=== PATIENT | male | born 1985 | race Caucasian/White ===

== ENCOUNTER 2024-12-16 18:03 | Observation (INO) ==
[2024-12-16 19:10] LABS: Alanine Aminotransferase 23 U/L (7-52); Albumin Globulin Ratio 0.8 (0.9-2); Albumin Level 2.9 gm/dl (3.4-5.0); Alkaline Phosphatase 109 U/L (34-104); Anion Gap 3 (3-11); Aspartate Aminotransferase 38 U/L (13-39); BUN Creatinine Ratio 15.9 (10-20); Bilirubin,Total 1.6 mg/dl (0.2-1.0); Blood Urea Nitrogen 13 mg/dl (6-23); Calcium 8.1 mg/dl (8.6-10.3); Carbon Dioxide 23 mmol/L (21-32); Chloride 108 mmol/L (98-107); Globulin 3.7 gm/dl (2.5-4.0); Glucose 147 mg/dl (70-99(Fasting)); Potassium 4.5 mmol/L (3.5-5.1); Sodium 134 mmol/L (136-145); Total Protein 6.6 gm/dl (6.0-8.3)
[2024-12-16 19:12] LABS: Hematocrit (blood only) 35.4 % (42.0-52.0); Hemoglobin 12.3 g/dl (14.0-18.0); Mean Corpuscular Hemoglobin 33.9 pg (25.0-34.0); Mean Corpuscular Hgb Conc 34.7 g/dL (32.0-36.0); Mean Corpuscular Volume 97.5 fL (80.0-100.0); RDW Standard Deviation 50.4 fL (36.4-46.3); Red Blood Count 3.63 M/uL (4.70-6.10); White Blood Count 8.96 K/ul (4.8-10.8)
[2024-12-16 19:25] LABS: Basophils # (auto) 0.02 K/uL (0.00-0.20); Basophils % (auto) 0.2 %; Eosinophils % (auto) 1.1 %; Immature Granulocytes # (auto) 0.04 K/uL (0.01-0.20); Immature Granulocytes % (auto) 0.4 %; Lymphocytes # (auto) 0.53 K/uL (1.20-3.40); Lymphocytes % (auto) 5.9 %; Mean Platelet Volume 11.8 fL (9.4-12.4); Monocytes # (auto) 0.88 K/uL (0.11-0.59); Monocytes % (auto) 9.8 %; Neutrophils # (auto) 7.39 K/uL (1.40-6.50); Neutrophils % (auto) 82.6 %; Platelet Count 61 K/uL (130-400); Platelet Estimate Decreased (Normal)
--- NOTE | 2024-12-16 21:33 | Emergency Department Note ---
Impression & Plan Cellulitis of left lower extremity, Alcohol use disorder, Type 2 diabetes mellitus, Thrombocytopenia, Abscess of left lower extremity ED Provider Note CHIEF COMPLAINT: Knee abscess HISTORY OF PRESENTING ILLNESS: The patient is a 39-year-old male who arrives to the emergency department for evaluation of a knee abscess with cellulitis. He reports he is currently at [facility] for alcohol treatment. He reports he has been taking antibiotic for the last 4 days, however the redness and pain in the left knee is worsening. He now states he is having intermittent fevers. He reports severe pain and tenderness to the left leg, worsening at the medial aspect of the left knee. He reports draining from the area noted. He reports full sensation of the leg. He denies IV drug use, or injection into that area. REVIEW OF SYSTEMS: See HPI for pertinent positives and pertinent negatives. ALLERGIES: No known drug allergies MEDICATIONS: See below PAST MEDICAL HISTORY: Alcohol dependence, thrombocytopenia, type 2 diabetes PHYSICAL EXAM: VITALS: Vitals are noted on the nurse's note and reviewed by myself. Vital signs stable. GENERAL: 39-year-old male, in no acute distress, nondiaphoretic, well-developed well-nourished. SKIN: Cellulitis, extending from distal left tib-fib to proximal left humerus, circumferential. Edema, with induration noted. Area of drainage, and fluctuance at the medial aspect of the left knee. HEAD: Normocephalic atraumatic. HEART: Regular rate and rhythm without murmurs gallops or rubs. LUNGS: Clear to auscultation bilaterally without wheezes, rales or rhonchi. No retractions or accessory muscle use. MUSCULOSKELETAL: Limited ROM, left knee, secondary to pain, edema, and infection. Distal extremity edema noted, DP pulse intact. Sensation intact to dull and sharp. Capillary refill<3. NEURO: Patient was alert and oriented to person place and time. No focal neurological deficits. DIFFERENTIAL DIAGNOSIS: Cellulitis, abscess, MRSA infection, DVT, necrotizing fasciitis, dermatitis, drug eruption, allergic reaction, as well as other pathologies. ED COURSE AND MEDICAL DECISION MAKING: MEDICATIONS GIVEN: 1 L NSS bolus, morphine 4 mg IVP, cefepime 2 g IV vancomycin 2750 mg IV INTERPRETATION OF LABS: I interpreted the labs with full lab results as below in the lab section of this note. Pertinent lab results discussed in the MDM section below. INTERPRETATION OF IMAGING: Imaging studies were interpreted by myself and read by radiology as per the imaging section of this note. CHRONIC MEDICAL/SOCIAL CONDITIONS AFFECTING CARE: Chronic alcohol use, alcohol dependence, type 2 diabetes mellitus MDM SUMMARY: The patient is a pleasant 39-year-old male who arrives to the emergency department via EMS for evaluation of the above-stated complaint. The patient arrived during a time of high acuity, and high-volume. Initial workup was performed in triage including a saline lock, CBC, CMP. CBC shows no leukocytosis, with pancytopenia, CMP CMP shows elevated total bili at 1.6, elevated alkaline phosphatase 109, albumin 2.9, findings consistent with patient's history of chronic alcohol dependence. Upon evaluation of the patient, sepsis orders were initiated including blood cultures, lactate, procalcitonin, urinalysis, IV fluids, and imaging including x-ray imaging of the left knee, and ultrasound imaging of the left lower extremity soft tissue. Lactate 1.0, procalcitonin within normal limits. X-ray imaging of the left knee shows diffuse subcutaneous edema, per my interpretation. Ultrasound imaging shows a 1.9 x 0.7 x 1.6 cm complex fluid collection along the medial aspect of the left popliteal fossa likely representing an abscess. The patient was provided IV fluids, 4 mg of IV morphine, 2 g of IV cefepime, and weight-based dosing of IV vancomycin. [facility], and further evaluation. I [facility] who is working with Dr. Elmore. They agreed to accept the patient under their care. Please refer to their documentation for further patient workup and treatment. DIAGNOSIS: Left lower extremity cellulitis, abscess of left lower extremity, thrombocytopenia The chart was completed utilizing [employer] Speech voice recognition software. Grammatical errors, random word insertions, pronoun errors, and incomplete sentences are an occasional consequence of this system due to software limitations, ambient noise, and hardware issues. Any formal questions or concerns about the content, text, or information contained within the body of this dictation should be directly addressed to the provider for clarification. Past Med/Surg History Problem List (Updated 12/20/24 @ 13:01 by ALESHIA Jones) Abscess of left lower extremity (Acute) Thrombocytopenia (Acute) Hypertension Type 2 diabetes mellitus (Acute) GERD (gastroesophageal reflux disease) Alcohol use disorder (Acute) Cellulitis of left lower extremity (Acute) Social History Smoking Status: Never smoker Second Hand Exposure: No; Do You Dip or Chew Tobacco: No; Tobacco Cessation Education Requested by Patient: No Hx Alcohol Use: Yes Hx Substance Use: No Preferred Language: Upper Sorbian Communication Ability: Effective Peanut Roaster Required: No Beliefs That Will Affect Care: None Current Living Situation: Boarding Home Current Living Situation Comment: currently is statying at [facility] But normally lives at home with . Other Information That Helps Us Care for You: No Feels Safe at Home: Yes Safety Concerns: Feels Safe At This Time Assistive Devices: None Allergies Allergies Allergy/AdvReac Type Severity Reaction Status Date / Time No Known Allergies Allergy Unverified 12/16/24 22:39 Home Meds Home Medications Medication Instructions Recorded Confirmed Coreg 1 tab PO BID 12/16/24 12/16/24 Previous Rx's Medication Instructions Recorded acetaminophen 500 mg tablet 1,000 mg (2 x 500 mg) PO Q8 PRN 12/20/24 (Acetaminophen Extra Strength) pain 3 days #20 tabs acetaminophen 500 mg tablet 1,000 mg (2 x 500 mg) PO Q8 3 days 12/20/24 (Tylenol Extra Strength) #18 tabs doxycycline hyclate 100 mg capsule 100 mg PO BID 7 days #14 caps 12/20/24 doxycycline monohydrate 100 mg 100 mg PO BID 7 days #14 caps 12/20/24 capsule ketorolac 10 mg tablet 10 mg PO Q8H 3 days #9 tabs 12/20/24 ketorolac 10 mg tablet 10 mg PO Q8H 3 days #9 tabs 12/20/24 pantoprazole 40 mg tablet,delayed 40 mg PO DAILY 4 weeks #28 tabs 12/20/24 release pantoprazole 40 mg tablet,delayed 40 mg PO QAM 15 days #20 tabs 12/20/24 release Results & Data (ED) Vital Signs Vital Signs - 24 hr 12/16/24 18:26 Temperature 37.3 C Temperature Source Oral Pulse Rate 82 Respiratory Rate 17 Pulse Oximetry 97 Oxygen Delivery Method Room Air Sepsis Recent Fever Within 48 Hours Yes Sepsis New/Unexplained Change in Mental Status N/A Sepsis Action Taken by Nursing No Action Required Home Medications Current Medication List: was personally reviewed by me Laboratory Data Attestation: I reviewed the patient's lab results. 12/20/24 07:27 12/20/24 07:27 Lab Results 12/16/24 12/16/24 Range/Units 18:32 22:50 WBC 8.96 (4.8-10.8) K/ul RBC 3.63 L (4.70-6.10) M/uL Hgb 12.3 L (14.0-18.0) g/dl Hct 35.4 L (42.0-52.0) % MCV 97.5 (80.0-100.0) fL MCH 33.9 (25.0-34.0) pg MCHC 34.7 (32.0-36.0) g/dL RDW Std Deviation 50.4 H (36.4-46.3) fL RDW Coeff of Katelyn 14.0 (11.5-14.5) % Plt Count 61 L (130-400) K/uL MPV 11.8 (9.4-12.4) fL Immature Gran % (Auto) 0.4 % Neut % (Auto) 82.6 % Lymph % (Auto) 5.9 % Lamb % (Auto) 9.8 % Eos % (Auto) 1.1 % Baso % (Auto) 0.2 % Neut # (Auto) 7.39 H (1.40-6.50) K/uL Lymph # (Auto) 0.53 L (1.20-3.40) K/uL Lamb # (Auto) 0.88 H (0.11-0.59) K/uL Eos # (Auto) 0.10 (0.00-0.50) K/uL Baso # (Auto) 0.02 (0.00-0.20) K/uL Immature Gran # (Auto) 0.04 (0.01-0.20) K/uL Platelet Estimate Decreased L (Normal) Sodium 134 L (136-145) mmol/L Potassium 4.5 (3.5-5.1) mmol/L Chloride 108 H (98-107) mmol/L Carbon Dioxide 23 (21-32) mmol/L Anion Gap 3 (3-11) BUN 13 (6-23) mg/dl Creatinine 0.82 (0.6-1.4) mg/dl Est Cr Clr Drug Dosing Not Reportable eGFR 113.18 BUN/Creatinine Ratio 15.9 (10-20) Glucose 147 H (70-99(Fasting)) mg/dl Lactate 1.0 (0.4-2.0) mmol/L Calcium 8.1 L (8.6-10.3) mg/dl Total Bilirubin 1.6 H (0.2-1.0) mg/dl AST 38 (13-39) U/L ALT 23 (7-52) U/L Alkaline Phosphatase 109 H (34-104) U/L Total Protein 6.6 (6.0-8.3) gm/dl Albumin 2.9 L (3.4-5.0) gm/dl Globulin 3.7 (2.5-4.0) gm/dl Albumin/Globulin Ratio 0.8 L (0.9-2) Administered Medications Acetaminophen (Acetaminophen 500 Mg Tab) 1,000 mg PO Q8 JENNIFER Stop: 01/17/25 15:14 Last Admin: 12/20/24 06:11 Dose: 1,000 mg Documented By: Admin: 12/19/24 20:57 Dose: 1,000 mg Documented By: Admin: 12/19/24 12:49 Dose: 1,000 mg Documented By: Admin: 12/19/24 05:30 Dose: 1,000 mg Documented By: Admin: 12/18/24 21:03 Dose: 1,000 mg Documented By: Admin: 12/18/24 15:53 Dose: 1,000 mg Documented By: KATHY Carvedilol (Carvedilol 3.125 Mg Tab) 3.125 mg PO BID JENNIFER Stop: 01/16/25 08:59 Last Admin: 12/20/24 07:55 Dose: 3.125 mg Documented By: Admin: 12/19/24 20:57 Dose: 3.125 mg Documented By: Admin: 12/19/24 08:51 Dose: 3.125 mg Documented By: Admin: 12/18/24 21:03 Dose: 3.125 mg Documented By: Admin: 12/18/24 08:28 Dose: 3.125 mg Documented By: Admin: 12/17/24 19:57 Dose: 3.125 mg Documented By: MARIA G Admin: 12/17/24 08:15 Dose: 3.125 mg Documented By: KATHY Fluoxetine HCl (Fluoxetine Hcl 20 Mg Cap) 20 mg PO QAM JENNIFER Stop: 01/16/25 08:59 Last Admin: 12/20/24 07:55 Dose: 20 mg Documented By: Admin: 12/19/24 08:51 Dose: 20 mg Documented By: Admin: 12/18/24 08:28 Dose: 20 mg Documented By: Admin: 12/17/24 08:15 Dose: 20 mg Documented By: KATHY Vancomycin HCl 1,250 mg/ (Sodium Chloride) 275 mls @ 200 mls/hr IV Q8H JENNIFER Stop: 12/24/24 09:59 Last Infusion: 12/20/24 10:59 Dose: Infused Documented By: Admin: 12/20/24 09:01 Dose: 200 mls/hr Documented By: Infusion: 12/20/24 02:44 Dose: Infused Documented By: Admin: 12/20/24 01:07 Dose: 200 mls/hr Documented By: Infusion: 12/19/24 19:12 Dose: Infused Documented By: Admin: 12/19/24 17:48 Dose: 200 mls/hr Documented By: Infusion: 12/19/24 11:44 Dose: Infused Documented By: Admin: 12/19/24 10:08 Dose: 200 mls/hr Documented By: Infusion: 12/19/24 03:11 Dose: Infused Documented By: Admin: 12/19/24 00:55 Dose: 200 mls/hr Documented By: MLRisa Infusion: 12/18/24 20:00 Dose: Infused Documented By: MLRisa Admin: 12/18/24 18:30 Dose: 200 mls/hr Documented By: Infusion: 12/18/24 11:28 Dose: Infused Documented By: Admin: 12/18/24 09:48 Dose: 200 mls/hr Documented By: Infusion: 12/18/24 03:28 Dose: Infused Documented By: MARIA G Admin: 12/18/24 02:01 Dose: 200 mls/hr Documented By: MARIA G Infusion: 12/17/24 19:30 Dose: Infused Documented By: MARIA G Admin: 12/17/24 18:02 Dose: 200 mls/hr Documented By: Infusion: 12/17/24 11:27 Dose: Infused Documented By: Admin: 12/17/24 09:53 Dose: 200 mls/hr Documented By: KATHY Insulin Aspart (Insulin Aspart Per Unit Charge) 0 units SC ACHS JENNIFER Stop: 01/16/25 07:29 Last Admin: 12/20/24 12:36 Dose: 4 units Documented By: MANJULA Co-signed By: ИРИНА Admin: 12/20/24 09:00 Dose: 2 units Documented By: MANJULA Co-signed By: ИРИНА Admin: 12/19/24 20:58 Dose: Not Given Documented By: KENIA Co-signed By: ALE Admin: 12/19/24 17:20 Dose: 3 units Documented By: LIZZETH Co-signed By: ИРИНА Admin: 12/19/24 12:48 Dose: 3 units Documented By: LIZZETH Co-signed By: AUSTIN Admin: 12/19/24 08:51 Dose: 4 units Documented By: LIZZETH Co-signed By: AUSTIN Admin: 12/18/24 20:57 Dose: Not Given Documented By: KENIA Co-signed By: ELMA Admin: 12/18/24 17:23 Dose: 2 units Documented By: KATHY Co-signed By: APOLINAR Admin: 12/18/24 12:07 Dose: 3 units Documented By: KATHY Co-signed By: DAMIAN Admin: 12/18/24 08:19 Dose: 4 units Documented By: KATHY Co-signed By: DANIEL Admin: 12/17/24 21:46 Dose: Not Given Documented By: MARIA G Co-signed By: HERNANDEZ Admin: 12/17/24 17:05 Dose: 4 units Documented By: KATHY Co-signed By: DAMIAN Admin: 12/17/24 12:26 Dose: 3 units Documented By: KATHY Co-signed By: DAMIAN Admin: 12/17/24 08:20 Dose: 4 units Documented By: KATHY Co-signed By: ИРИНА Ketorolac Tromethamine (Ketorolac Tromethamine 15 Mg/Ml Vial) 10 mg IV Q8H JENNIFER Stop: 12/24/24 12:59 Last Admin: 12/20/24 12:36 Dose: 10 mg Documented By: Admin: 12/20/24 06:11 Dose: 10 mg Documented By: Admin: 12/19/24 20:55 Dose: 10 mg Documented By: Admin: 12/19/24 15:18 Dose: 10 mg Documented By: LIZZETH Oxycodone HCl (Oxycodone Hcl Ir 5 Mg Tab (Immediate Release)) 5 mg PO Q6H PRN PRN Reason: Pain Stop: 01/02/25 13:02 Last Admin: 12/20/24 00:18 Dose: 5 mg Documented By: Admin: 12/19/24 17:21 Dose: 5 mg Documented By: LIZZETH Pantoprazole Sodium (Pantoprazole 40 Mg Tab) 40 mg PO QAM JENNIFER Stop: 01/16/25 00:00 Last Admin: 12/20/24 07:55 Dose: 40 mg Documented By: Admin: 12/19/24 08:51 Dose: 40 mg Documented By: Admin: 12/18/24 08:28 Dose: 40 mg Documented By: Admin: 12/17/24 08:57 Dose: 40 mg Documented By: Admin: 12/17/24 01:24 Dose: 40 mg Documented By: MERISSA Discontinued Medications Acetaminophen (Acetaminophen 325 Mg Tab) 650 mg PO Q4H PRN PRN Reason: pain/fever Stop: 01/16/25 00:00 Last Admin: 12/17/24 02:41 Dose: 650 mg Documented By: NANO Cefepime HCl (Cefepime 2,000 Mg/20 Ml Iv Push) Confirm Administered Dose 2,000 mg IV .STK-MED ONE Stop: 12/17/24 00:10 Last Admin: 12/17/24 00:43 Dose: Not Given Documented By: JONATHAN Hydromorphone HCl (Hydromorphone Inj 1 Mg/Ml Syringe) 1 mg IV NOW STA Stop: 12/17/24 03:39 Last Admin: 12/17/24 03:46 Dose: 1 mg Documented By: MPS Hydromorphone HCl (Hydromorphone Inj 0.5 Mg/0.5 Ml Syr) 1 mg IV Q6H JENNIFER Stop: 12/31/24 11:59 Last Admin: 12/17/24 12:55 Dose: 1 mg Documented By: KATHY Sodium Chloride (Nss) 1,000 mls @ 999 mls/hr IV .Q1H1M JENNIFER Stop: 12/16/24 23:45 Last Infusion: 12/17/24 02:12 Dose: Infused Documented By: Admin: 12/17/24 00:58 Dose: 999 mls/hr Documented By: Infusion: 12/17/24 00:17 Dose: Infused Documented By: Admin: 12/16/24 23:16 Dose: 999 mls/hr Documented By: MERISSA Vancomycin HCl 2,750 mg/ (Sodium Chloride) 555 mls @ 200 mls/hr IV NOW ONE Stop: 12/17/24 00:24 Last Infusion: 12/17/24 04:32 Dose: Infused Documented By: Admin: 12/17/24 00:11 Dose: 200 mls/hr Documented By: MERISSA Cefepime HCl (Maxipime 2000mg) 2,000 mg in 20 mls @ 5 mls/min IV NOW STA; Protocol Stop: 12/16/24 21:58 Last Admin: 12/17/24 00:11 Dose: 5 mls/min Documented By: MERISSA Cefepime HCl (Maxipime 2000mg) 2,000 mg in 20 mls @ 5 mls/min IV Q12H JENNIFER; Protocol Stop: 12/24/24 11:59 Last Admin: 12/17/24 12:07 Dose: 5 mls/min Documented By: KATHY Lidocaine/Epinephrine (Lidocaine 1%/Epinephrine 1:100,000 50 Ml Vial) 10 ml INFIL NOW ONE Stop: 12/17/24 12:15 Last Admin: 12/17/24 14:21 Dose: Not Given Documented By: KATHY Morphine Sulfate (Morphine Sulfate 4 Mg/Ml 1 Ml Carp\Vial) 4 mg IV NOW STA Stop: 12/16/24 21:45 Last Admin: 12/16/24 23:23 Dose: Not Given Documented By: MERISSA Morphine Sulfate (Morphine Sulfate 4 Mg/Ml 1 Ml Carp\Vial) 4 mg IV NOW STA Stop: 12/16/24 23:05 Last Admin: 12/16/24 23:13 Dose: 4 mg Documented By: MERISSA Morphine Sulfate (Morphine Sulfate 2 Mg/Ml Carp) 2 mg IV Q3H PRN PRN Reason: Moderate Pain (Scale 4, 5, 6) Stop: 12/31/24 14:25 Last Admin: 12/19/24 08:51 Dose: 2 mg Documented By: Admin: 12/19/24 05:30 Dose: 2 mg Documented By: KENIA Morphine Sulfate (Morphine Sulfate 4 Mg/Ml 1 Ml Carp\Vial) 4 mg IV Q3H PRN PRN Reason: Severe Pain (Scale 7, 8, 9,10) Stop: 12/31/24 14:25 Last Admin: 12/19/24 12:49 Dose: 4 mg Documented By: Admin: 12/19/24 00:52 Dose: 4 mg Documented By: Admin: 12/18/24 21:05 Dose: 4 mg Documented By: Admin: 12/18/24 17:50 Dose: 4 mg Documented By: Admin: 12/18/24 13:50 Dose: 4 mg Documented By: Admin: 12/18/24 09:24 Dose: 4 mg Documented By: Admin: 12/18/24 05:01 Dose: 4 mg Documented By: MARIA G Admin: 12/18/24 02:01 Dose: 4 mg Documented By: MARIA G Admin: 12/17/24 22:58 Dose: 4 mg Documented By: MARIA G Admin: 12/17/24 19:58 Dose: 4 mg Documented By: MARIA G Admin: 12/17/24 16:56 Dose: 4 mg Documented By: KATHY Oxycodone HCl (Oxycodone Hcl Ir 5 Mg Tab (Immediate Release)) 5 mg PO Q4H PRN PRN Reason: Pain Stop: 12/31/24 02:16 Last Admin: 12/17/24 10:01 Dose: 5 mg Documented By: Admin: 12/17/24 02:41 Dose: 5 mg Documented By: ANS Discharge Plan Visit Data Chief Complaint: Knee Injury/Pain Stated Complaint: KNEE ABSEST ED Provider: Naida Mehta ED Midlevel Provider: Joann Chang Discharge Problem: Cellulitis of left lower extremity, Alcohol use disorder, Type 2 diabetes mellitus, Thrombocytopenia, Abscess of left lower extremity Patient Disposition: Admitted As Inpatient Discharge Instructions Interventions: ED Discharge Assessment Last Done: 12/17/24 01:20
[2024-12-16] MEDS ORDERED: VANCOMYCIN CONSULT ACTIVE PRN (21:55)
--- NOTE | 2024-12-16 22:15 | History & Physical Report ---
Date of Service December 16, 2024 Assessment & Plan (1) Cellulitis of left lower extremity: Plan: -Patient with left lower extremity cellulitic infection that began 3 days ago. -Stated feeling fevers at home of afebrile on admission. -No leukocytosis, tachycardia, or signs for sepsis at this time. -Blood cultures collected. Wound cultures collected. -UA pending collection. -Knee x-ray showed diffuse subcutaneous edema. -Ultrasound soft tissue pending at time of admission. -Started on vancomycin and cefepime in the ED. Will continue at this time. -Given 4 mg of morphine x 2 in the ED. Will trial with Tylenol at time of admission. (2) Thrombocytopenia: Plan: -Patient with thrombocytopenia without any known cause. -No prior records to review at this time. -Will monitor CBC in the AM. Ordered PT/INR, and PTT for the a.m. -Low concerns for DIC at this time. Though we will continue to monitor. -Will hold off on anticoagulation at this time due to thrombocytopenia and may consider in the future. (3) Alcohol use disorder: Plan: -Patient with alcohol use disorder and currently is at [facility] rehab. -Denies any IV drug use. -Last drink was over 1 month ago. Will hold off on AAWS but will continue to monitor closely. -Will continue on home fluoxetine at this time. (4) GERD (gastroesophageal reflux disease): Plan: -Patient with a reported history of GERD. Continue on Protonix 40 mg daily. (5) Type 2 diabetes mellitus: Plan: -Patient with a reported history of type 2 diabetes on Ozempic. Has never trialed metformin. -Patient's home regimen held on admission -Continue BSG checks, sliding-scale insulin, hypoglycemic protocol -Hemoglobin A1c in the AM. (6) Hypertension: Plan: -Continue on Coreg twice daily. Plan Fluids: 1 unit NSS in the ED, encourage oral hydration Nutrition: Type 2 diabetes, heart healthy Code status: Full code DVT ppx: Will hold due to thrombocytopenia Dispo: med/surg History of Present Illness Chief Complaint: Cellulitis Primary Care Provider: NO PCP Patient is a 39-year-old male with past medical history of hypertension, diabetes, GERD, alcohol use disorder who presents to the hospital with left lower extremity cellulitis. Patient comes from [facility]. He is originally from [place]. States that for the last 3 days he has been having left low er extremity pain and redness. Denies any falls or injuries to the area. He also states that he has felt febrile but has been taking Tylenol to help. States that today he had some drainage around the area as well. Never had issues like this previously. Denies injecting any material into the left lower extremity. Denies any history of IV drug use. States that he is in [facility] for alcoholism. States his last drink was over 1 month ago. He is currently been at [facility] for the last 2 weeks. He also states that he is therefore mental health reasons as well. Allergies Allergy/AdvReac Type Severity Reaction Status Date / Time No Known Allergies Allergy Unverified 12/16/24 22:39 Home Medications Medication Instructions Recorded Confirmed Type Coreg 1 tab PO BID 12/16/24 12/16/24 History Past Med/Surg History Problem List (Updated 12/17/24 @ 10:54 by Talisha Rucker PA-C) Abscess of left lower extremity Thrombocytopenia Hypertension Type 2 diabetes mellitus GERD (gastroesophageal reflux disease) Alcohol use disorder Cellulitis of left lower extremity Social History Smoking Status: Never smoker Second Hand Exposure: No; Do You Dip or Chew Tobacco: No; Tobacco Cessation Education Requested by Patient: No Hx Alcohol Use: Yes Hx Substance Use: No Preferred Language: Occitan Communication Ability: Effective Classics Teacher Required: No Beliefs That Will Affect Care: None Current Living Situation: Boarding Home Current Living Situation Comment: currently is statying at [facility]. But normally lives at home with . Other Information That Helps Us Care for You: No Feels Safe at Home: Yes Safety Concerns: Feels Safe At This Time Assistive Devices: None Review of Systems Review of Systems: All systems reviewed & are unremarkable except as noted in Subjective Physical Exam Physical Exam: Constitutional: well-appearing, no acute distress HEENT: NCAT, no conjunctival injection CV: regular rhythm, no murmur appreciated, extremities well-perfused, no LE edema Resp: CTABL, no wheezes/rales/rhonchi appreciated, no increased work of breathing GI: soft, nondistended, nontender, BS normoactive MSK: no gross deformities appreciated Skin: Left lower extremity swelling, erythema, and warmth from the left ankle up to the left knee Neuro: alert, oriented, no focal neurologic deficit appreciated Results & Data Results & Data Vital Signs (Past 12 Hours) Vital Signs Temp Pulse Resp Pulse Ox O2 Del Method 12/16/24 18:26 37.3 C 82 17 97 Room Air Supervising Physician Co-Signing Physician Notes Attending addendum: I have physically seen this patient, have supervised the medical residents activities, and agree with the H&P unless as otherwise noted. Assessment and Plan: The patient is a 39-year-old male with a past medical history including hypertension, diabetes mellitus, GERD, alcohol use disorder who presently is undergoing rehab at [facility], who presents to the emergency department with 3 days of worsening left lower extremity cellulitis and abscess. He reportedly has been at [facility] for the past 2 weeks. Unclear history as to how current injury took place. He denies any direct trauma, or injecting any material into the left lower extremity. He has been placed on vancomycin IV and cefepime by the ED, and [facility] #Left lower extremity cellulitis/abscess- Unclear etiology at this time, as patient has been at [facility] for 2 weeks Continue vancomycin IV and cefepime IV Follow blood culture sensitivities Order ultrasound left lower extremity for further evaluation #Thrombocytopenia- Platelets of 61 on admission. No signs of DIC at this time Follow serially, and further evaluation as needed #Alcohol use disorder- Currently at [facility] for rehab No indication for ANDREWS S protocol Status post 1 L normal saline from the ED #GERD-continue on Protonix #Diabetes mellitus- History of being on Ozempic Placed on Accu-Cheks with NovoLog SSI #Hypertension- Continue with Coreg with hold parameters
--- NOTE | 2024-12-16 22:41 | XRay Report ---
Exam(s): XR LEFT KNEE, 3 views EXAM: XR Left Knee, 3 Views CLINICAL HISTORY: Reason for exam: edema. TECHNIQUE: Three views of the left knee. COMPARISON: No relevant prior studies available. FINDINGS: Bones/joints: No acute fracture. No dislocation. No significant joint effusion. Soft tissues: Diffuse subcutaneous edema. IMPRESSION: Diffuse subcutaneous edema. No acute osseous findings. Electronically signed by: Christine Sanchez M.D. 12/16/24 22:40 PM
[2024-12-16] MEDS: MoRPHine SULFATE 4 MG/ML 1 ML CARP\\VIAL IV STA ×2 (23:13→23:23)
[2024-12-16] MEDS: SODIUM CHLORIDE 0.9% 1,000 ML IV SCH (23:16)
[2024-12-17] MEDS ORDERED: GLUCOSE 10 TAB/TUBE PO PRN (00:01)
[2024-12-17] MEDS ORDERED: ONDANSETRON INJ 2 MG/ML 2 ML VIAL IV PRN (00:01)
[2024-12-17] MEDS ORDERED: GLUCOSE 40% GEL 15 GM TUBE PO PRN (00:01)
[2024-12-17] MEDS ORDERED: CARBOHYDRATES FOR HYPOGLYCEMIA PO PRN (00:01)
[2024-12-17] MEDS ORDERED: DEXTROSE 50% 50 ML SYRINGE IV PRN (00:01)
[2024-12-17] MEDS ORDERED: GLUCAGON FOR INJ 1 MG VIAL SQ PRN (00:01)
[2024-12-17] MEDS: VANCOMYCIN HCL 2,750 MG in SODIUM CHLORIDE 0.9% 500 ML IV ONE (00:11)
[2024-12-17] MEDS: CEFEPIME 2000MG 2,000 MG/20 ML SYR IV STA (00:11)
[2024-12-17] MEDS: CEFEPIME 2,000 MG/20 ML IV PUSH IV ONE (00:43)
--- NOTE | 2024-12-17 00:52 | Ultrasound Report ---
Exam(s): US SOFT TISSUE EXAM: US Left Lower Extremity Non-Vascular, Limited CLINICAL HISTORY: Reason for exam: edema abscess. TECHNIQUE: Real-time ultrasound scan of the left lower extremity with image documentation. COMPARISON: No relevant prior studies available. FINDINGS: Soft tissues: There is a 1.9 x 0.7 x 1.6 cm complex fluid collection noted along the medial aspect of the left popliteal fossa. IMPRESSION: There is a 1.9 x 0.7 x 1.6 cm complex fluid collection noted along the medial aspect of the left popliteal fossa. This may represent an abscess. If further evaluation is clinically necessary, consider correlation with MRI Electronically signed by: Drew Weller MD 12/17/24 00:51 AM
[2024-12-17 01:06] LABS: Appearance Urine Clear (Clear); Bilirubin Urine Negative (Negative); Blood Urine Negative (Negative); Color Urine Yellow; Glucose Urine UA Negative (Negative); Ketones Urine Negative (Negative); Leukocyte Esterase Urine Negative (Negative); Nitrite Urine Negative (Negative); Protein Urine Negative (Negative); Specific Gravity Urine 1.016 (1.000-1.030); Urobilinogen Urine Negative (Negative)
[2024-12-17] MEDS: PANTOprazole 40 MG TAB PO SCH (01:24)
[2024-12-17] MEDS: ACETAMINOPHEN 325 MG TAB PO PRN (02:41)
[2024-12-17] MEDS: oxyCODONE HCL IR 5 MG TAB (IMMEDIATE RELEASE) PO PRN (02:41)
[2024-12-17] MEDS: HYDROmorphone INJ 1 MG/ML SYRINGE IV STA (03:46)
--- NOTE | 2024-12-17 07:33 | Hospitalist Progress Note ---
Date of Service December 17, 2024 Assessment & Plan (1) Abscess of left lower extremity: (2) Thrombocytopenia: (3) Hypertension: (4) Type 2 diabetes mellitus: (5) GERD (gastroesophageal reflux disease): (6) Cellulitis of left lower extremity: Plan (1) Cellulitis of left lower extremity: -Patient with left lower extremity cellulitic infection that began 3 days ago. -[place] feverish at home; Afebrile on admission -No leukocytosis, tachycardia, or signs for sepsis at this time. -Blood cultures pending -Wound Culture pending -Urinalysis: Normal -Knee x-ray showed diffuse subcutaneous edema. -Ultrasound soft tissue knee.There is complex fluid collection noted along the m edial aspect of left popliteal fossa which may represent an abscess -Started on vancomycin and cefepime in the ED. Stop Cefepime. Continue Vancomycin -Surgery consultation today. Incision and Drainage was done at bedside .Moderate amount of cloudy clear fluid but no mari pus , culture wasn't taken from the wound. -Morphine for Pain (2) Thrombocytopenia: -Platelets: 61>68 -Patient with thrombocytopenia without any known cause. -No prior records to review at this time. -PT/INR- 1.1/12.1 -Will hold anticoagulation at this time due to concerns for thrombocytopenia (3) Alcohol use disorder: -Patient with alcohol use disorder and currently is at [facility]. Originally from [place] -Denies any IV drug use. -Last drink was over 1 month ago. Will hold off on AAWS but will continue to monitor closely. -Will continue on home fluoxetine at this time. (4) GERD (gastroesophageal reflux disease): - Continue on Protonix 40 mg daily. (5) Type 2 diabetes mellitus: -Patient with a reported history of type 2 diabetes on Ozempic. Has never trialed metformin. -Patient's home regimen held on admission -Continue BSG checks, sliding-scale insulin, hypoglycemic protocol -Hemoglobin A1c : (6) Hypertension: -Continue on Coreg twice daily. Dispo: Code: Full code Dispo: Med/Surg VTE prophylaxis: Ho Admission and Anticipated Discharge Date Admission Date: December 16, 2024 Supervising Physician Co-Signing Physician Notes I personally examined the patient and verified all bishop points of history and exam, discussed case, and agree with decision making with Dr James leg numb - just post I&D surrounding area hurts. has PCP at home and expects to be done with [facility] in about a week. vitals noted nad heent nc at mmm breathing unlabored no accessory muscles good effort skin - area of I&D dressed, dull but VERY tender surrounding erythema. no crepitis cellulitis/abscess w sepsis POA (HR, temp) - s/p I&D. not sepsis/septic shock but with abscess and (+) MRSA nares reasonable to cover for MRSA - [employer] - highly doubt gram negative so OK to stop cefepime thrombocytopenia - baseline unclear but suspect relates to chronic EtOH abuse (?either marrow suppression or liver disease) - notes that he has good PCP and several specialists at home and will be following up in a week DVT proph - ambulation otherwise as above Subjective Eliel is a 39 Y O Male with PMH of HTN, Diabetes, GERD and alcohol use disorder presented left lower extremity pain and redness for 4 days and abscess in medial side of patella . He is admitted for Cellulitis of Left Lower Extremity and Abscess Overnight events: Not able to sleep because of pain Ongoing Symptoms: Still complaining pain the left leg from ankle upto abdomen. Most Dominant in the medial patellar region. Cannot move knee joint and is unable to walk due to pain. Denies fever, dizziness New concerns: Tenderness in the lower abdomen. Denies burning micturition, nausea and vomiting Review of Systems Review of Systems: As per HPI Physical Exam Constitutional: WD/WN, vitals as above well developed; no acute distress Eyes: PERRL, conjunctivae normal, anicteric sclerae ENMT: external ear and nose normal, oropharynx normal Ears: no hearing impairment Neck: trachea midline, no thyromegaly trachea midline Respiratory: normal respiratory effort, lungs clear to auscultation normal respiratory effort and + respiratory distress; no labored breathing and no retractions Auscultation: lungs clear to auscultation bilaterally Cardiovascular: RRR, no murmur, no edema Rate/Rhythm: regular rate and regular rhythm Chest (Breasts): normal inspection/palpation of breasts Chest: normal inspection of chest Musculoskeletal: has left erythema in leg extending to the left upper thigh with moderate swelling of left lower extremity down the ankle. Has focal induration of medial popliteal fossa with some skin necrosis and pinhole opening with purulent discharge Results & Data Results & Data Vital Signs (Past 12 Hours) Vital Signs Temp Pulse Pulse Resp BP BP Pulse Ox 12/17/24 02:16 37.3 C 91 H 18 129/66 97 12/17/24 00:25 96 H 12/17/24 00:21 37.9 C H 96 H 16 128/75 95 12/16/24 23:24 96 12/16/24 23:24 82 16 134/78 96 O2 Del Method 12/17/24 02:16 Room Air 12/17/24 00:25 12/17/24 00:21 Room Air 12/16/24 23:24 Room Air 12/16/24 23:24 Room Air
[2024-12-17] MEDS: carvediloL 3.125 MG TAB PO SCH (08:15)
[2024-12-17] MEDS: FLUoxetine HCL 20 MG CAP PO SCH (08:15)
[2024-12-17] MEDS: INSULIN ASPART PER UNIT CHARGE SC SCH (08:20)
[2024-12-17 08:22] LABS: Basophils # (auto) 0.02 K/uL (0.00-0.20); Basophils % (auto) 0.3 %; Eosinophils # (auto) 0.14 K/uL (0.00-0.50); Eosinophils % (auto) 1.9 %; Hemoglobin 11.9 g/dl (14.0-18.0); Immature Granulocytes # (auto) 0.03 K/uL (0.01-0.20); Immature Granulocytes % (auto) 0.4 %; Lymphocytes # (auto) 0.79 K/uL (1.20-3.40); Mean Corpuscular Hemoglobin 33.1 pg (25.0-34.0); Mean Corpuscular Volume 97.2 fL (80.0-100.0); Mean Platelet Volume 11.5 fL (9.4-12.4); Monocytes # (auto) 0.96 K/uL (0.11-0.59); Monocytes % (auto) 13.3 %; Neutrophils # (auto) 5.27 K/uL (1.40-6.50); Neutrophils % (auto) 73.1 %; Platelet Count 68 K/uL (130-400); RDW Coefficient of Variation 14.1 % (11.5-14.5); RDW Standard Deviation 50.1 fL (36.4-46.3); White Blood Count 7.21 K/ul (4.8-10.8)
[2024-12-17 08:39] LABS: BUN Creatinine Ratio 12.7 (10-20); Calcium 7.2 mg/dl (8.6-10.3); Creatinine Clr Calc Pharmacy 154.8 ml/min; Potassium 3.8 mmol/L (3.5-5.1)
[2024-12-17 08:51] LABS: INR 1.1 (0.9-1.1); Partial Thromboplastin Ratio 1.2; Partial Thromboplastin Time 32 Seconds (21-31); Prothrombin Time 12.1 Seconds (9.0-12.0)
--- NOTE | 2024-12-17 09:16 | Pharmacy Report ---
Pharmacy PK ABX Note - Date of Service December 17, 2024 - Assessment and Plan Assessment 39 year old M with PMH of HTN, DM, and GERD who presented with left lower extremity cellulitis. Ultrasound of knee revealed a complex fluid collection which may represent an abscess. Patient has been started on cefepime + vancomycin IV. Left leg gram stain growing gram positive cocci, culture results pending. BC pending. Plan Vancomycin * Loading dose: 2750 mg IV x 1 * Maintenance dose: 1250 mg IV every 8 hours * Regimen is predicted to achieve target AUC/BRITTANY of 400-600 mg/L.hr * predicted AUC/BRITTANY at steady state: 515 mg/L.hr * Trough level ordered for 12/19 @0930. Pharmacy will continue to follow and will adjust dose/frequency as necessary. Thank you. Pharmacy has transitioned to AUC monitoring for vancomycin. AUC/BRITTANY is the preferred PK/PD target and is associated with decreased risk of nephrotoxicity compared to traditional trough targets.
[2024-12-17] MEDS: VANCOMYCIN HCL 1,250 MG in SODIUM CHLORIDE 0.9% 250 ML IV SCH (09:53)
--- NOTE | 2024-12-17 10:49 | Surgery Consultation ---
Date of Consultation December 17, 2024 Assessment & Plan (1) Cellulitis of left lower extremity: (2) Abscess of left lower extremity: Plan US with small complex fluid collection likely abscess and examination consistent with small abscess and significant cellulitis with some skin necrosis at site of abscess. Will require I&D for further drainage. Will plan to do at bedside under local anesthetic. Will require packing and then continue IV abx given extensive cellulitis. Discussed with Dr. Jama who agrees with above. See separate procedure note. History of Present Illness Reason for Consultation: Left lower extremity abscess and cellulitis Requesting Physician: Celio Ramirez MD Attending Physician: Shin Aragon DO History of Present Illness Eliel is a 39 yo male who presented to ED last night with 3 day history of left lower extremity pain and redness that started around the knee and increased with associated fevers and nausea secondary to pain. No active drainage prior to ED presentation. No history of trauma or any injections in the area. No injuries to the area. No history of cellulitis or skin infections in the past. Allergies Allergy/AdvReac Type Severity Reaction Status Date / Time No Known Allergies Allergy Unverified 12/16/24 22:39 Home Medications Medication Instructions Recorded Confirmed Type Coreg 1 tab PO BID 12/16/24 12/16/24 History Patient History Social History Smoking Status: Never smoker Second Hand Exposure: No; Do You Dip or Chew Tobacco: No; Tobacco Cessation Education Requested by Patient: No Hx Alcohol Use: Yes Hx Substance Use: No Preferred Language: [place] Islander Rim Rol[employer] Required: No Beliefs That Will Affect Care: None Current Living Situation: Boarding Home Current Living Situation Comment: currently is statying at [facility] But normally lives at home with . Other Information That Helps Us Care for You: No Feels Safe at Home: Yes Safety Concerns: Feels Safe At This Time Assistive Devices: None Review of Systems Review of Systems: All systems reviewed & are unremarkable except as noted in HPI & below Physical Exam Constitutional: WD/WN, vitals as above cooperative; no acute distress and not ill appearing Respiratory: normal respiratory effort; no respiratory distress Musculoskeletal: Left lower extremity with focal induration of the medial popliteal fossa with some skin necrosis and pinhole opening with purulent drainage. Moderate amount of induration surrounding this site and focal severe tenderness. Erythema extending to the left upper thigh and the lower extremity with moderate swelling of the left lower extremity down to the ankle. Psychiatric: Orientation: alert and oriented x 3 Results & Data Vital Signs (Past 12 Hours) Vital Signs Temp Pulse Pulse Resp BP BP Pulse Ox 12/17/24 08:14 77 132/63 12/17/24 07:16 36.7 C 72 16 124/69 97 12/17/24 02:16 37.3 C 91 H 18 129/66 97 12/17/24 00:25 96 H 12/17/24 00:21 37.9 C H 96 H 16 128/75 95 12/16/24 23:24 96 12/16/24 23:24 82 16 134/78 96 O2 Del Method 12/17/24 08:14 12/17/24 07:16 Room Air 12/17/24 02:16 Room Air 12/17/24 00:25 12/17/24 00:21 Room Air 12/16/24 23:24 Room Air 12/16/24 23:24 Room Air Laboratory Results 12/17/24 12/17/24 12/17/24 Range/Units 07:47 07:46 01:11 WBC 7.21 (4.8-10.8) K/ul RBC 3.60 L (4.70-6.10) M/uL Hgb 11.9 L (14.0-18.0) g/dl Hct 35.0 L (42.0-52.0) % MCV 97.2 (80.0-100.0) fL MCH 33.1 (25.0-34.0) pg MCHC 34.0 (32.0-36.0) g/dL RDW Std Deviation 50.1 H (36.4-46.3) fL RDW Coeff of Katelyn 14.1 (11.5-14.5) % Plt Count 68 L (130-400) K/uL MPV 11.5 (9.4-12.4) fL Immature Gran % (Auto) 0.4 % Neut % (Auto) 73.1 % Lymph % (Auto) 11.0 % Parke % (Auto) 13.3 % Eos % (Auto) 1.9 % Baso % (Auto) 0.3 % Neut # (Auto) 5.27 (1.40-6.50) K/uL Lymph # (Auto) 0.79 L (1.20-3.40) K/uL Parke # (Auto) 0.96 H (0.11-0.59) K/uL Eos # (Auto) 0.14 (0.00-0.50) K/uL Baso # (Auto) 0.02 (0.00-0.20) K/uL Immature Gran # (Auto) 0.03 (0.01-0.20) K/uL Platelet Estimate (Normal) PT 12.1 H (9.0-12.0) Seconds INR 1.1 (0.9-1.1) APTT 32 H (21-31) Seconds PTT Ratio 1.2 Sodium 137 (136-145) mmol/L Potassium 3.8 (3.5-5.1) mmol/L Chloride 110 H (98-107) mmol/L Carbon Dioxide 25 (21-32) mmol/L Anion Gap 2 L (3-11) BUN 10 (6-23) mg/dl Creatinine 0.79 (0.6-1.4) mg/dl Est Cr Clr Drug Dosing 154.8 eGFR 114.46 BUN/Creatinine Ratio 12.7 (10-20) Glucose 117 H (70-99(Fasting)) mg/dl POC Glucose 181 H (70-99) mg/dl Estimat Average Glucose Pending Hemoglobin A1c Pending Lactate (0.4-2.0) mmol/L Calcium 7.2 L (8.6-10.3) mg/dl Total Bilirubin (0.2-1.0) mg/dl AST (13-39) U/L ALT (7-52) U/L Alkaline Phosphatase (34-104) U/L Total Protein (6.0-8.3) gm/dl Albumin (3.4-5.0) gm/dl Globulin (2.5-4.0) gm/dl Albumin/Globulin Ratio (0.9-2) Procalcitonin (0-0.5) ng/ml Urine Color Urine Appearance (Clear) Urine pH (4.5-7.5) Ur Specific Phil[place] (1.000-1.030) Urine Protein (Negative) Urine Glucose (UA) (Negative) Urine Ketones (Negative) Urine Blood (Negative) Urine Nitrite (Negative) Urine Bilirubin (Negative) Urine Urobilinogen (Negative) Ur Leukocyte Esterase (Negative) Nasal Screen MRSA (PCR) Positive A (Negative) 12/17/24 12/16/24 12/16/24 Range/Units 01:00 22:54 22:50 WBC (4.8-10.8) K/ul RBC (4.70-6.10) M/uL Hgb (14.0-18.0) g/dl Hct (42.0-52.0) % MCV (80.0-100.0) fL MCH (25.0-34.0) pg MCHC (32.0-36.0) g/dL RDW Std Deviation (36.4-46.3) fL RDW Coeff of Katelyn (11.5-14.5) % Plt Count (130-400) K/uL MPV (9.4-12.4) fL Immature Gran % (Auto) % Neut % (Auto) % Lymph % (Auto) % Parke % (Auto) % Eos % (Auto) % Baso % (Auto) % Neut # (Auto) (1.40-6.50) K/uL Lymph # (Auto) (1.20-3.40) K/uL Parke # (Auto) (0.11-0.59) K/uL Eos # (Auto) (0.00-0.50) K/uL Baso # (Auto) (0.00-0.20) K/uL Immature Gran # (Auto) (0.01-0.20) K/uL Platelet Estimate (Normal) PT (9.0-12.0) Seconds INR (0.9-1.1) APTT (21-31) Seconds PTT Ratio Sodium (136-145) mmol/L Potassium (3.5-5.1) mmol/L Chloride (98-107) mmol/L Carbon Dioxide (21-32) mmol/L Anion Gap (3-11) BUN (6-23) mg/dl Creatinine (0.6-1.4) mg/dl Est Cr Clr Drug Dosing eGFR BUN/Creatinine Ratio (10-20) Glucose (70-99(Fasting)) mg/dl POC Glucose (70-99) mg/dl Estimat Average Glucose Hemoglobin A1c Lactate 1.0 (0.4-2.0) mmol/L Calcium (8.6-10.3) mg/dl Total Bilirubin (0.2-1.0) mg/dl AST (13-39) U/L ALT (7-52) U/L Alkaline Phosphatase (34-104) U/L Total Protein (6.0-8.3) gm/dl Albumin (3.4-5.0) gm/dl Globulin (2.5-4.0) gm/dl Albumin/Globulin Ratio (0.9-2) Procalcitonin 0.17 (0-0.5) ng/ml Urine Color Yellow Urine Appearance Clear (Clear) Urine pH 8.0 H (4.5-7.5) Ur Specific Phil[place] 1.016 (1.000-1.030) Urine Protein Negative (Negative) Urine Glucose (UA) Negative (Negative) Urine Ketones Negative (Negative) Urine Blood Negative (Negative) Urine Nitrite Negative (Negative) Urine Bilirubin Negative (Negative) Urine Urobilinogen Negative (Negative) Ur Leukocyte Esterase Negative (Negative) Nasal Screen MRSA (PCR) (Negative) 12/16/24 Range/Units 18:32 WBC 8.96 (4.8-10.8) K/ul RBC 3.63 L (4.70-6.10) M/uL Hgb 12.3 L (14.0-18.0) g/dl Hct 35.4 L (42.0-52.0) % MCV 97.5 (80.0-100.0) fL MCH 33.9 (25.0-34.0) pg MCHC 34.7 (32.0-36.0) g/dL RDW Std Deviation 50.4 H (36.4-46.3) fL RDW Coeff of Katelyn 14.0 (11.5-14.5) % Plt Count 61 L (130-400) K/uL MPV 11.8 (9.4-12.4) fL Immature Gran % (Auto) 0.4 % Neut % (Auto) 82.6 % Lymph % (Auto) 5.9 % Parke % (Auto) 9.8 % Eos % (Auto) 1.1 % Baso % (Auto) 0.2 % Neut # (Auto) 7.39 H (1.40-6.50) K/uL Lymph # (Auto) 0.53 L (1.20-3.40) K/uL Parke # (Auto) 0.88 H (0.11-0.59) K/uL Eos # (Auto) 0.10 (0.00-0.50) K/uL Baso # (Auto) 0.02 (0.00-0.20) K/uL Immature Gran # (Auto) 0.04 (0.01-0.20) K/uL Platelet Estimate Decreased L (Normal) PT (9.0-12.0) Seconds INR (0.9-1.1) APTT (21-31) Seconds PTT Ratio Sodium 134 L (136-145) mmol/L Potassium 4.5 (3.5-5.1) mmol/L Chloride 108 H (98-107) mmol/L Carbon Dioxide 23 (21-32) mmol/L Anion Gap 3 (3-11) BUN 13 (6-23) mg/dl Creatinine 0.82 (0.6-1.4) mg/dl Est Cr Clr Drug Dosing Not Reportable eGFR 113.18 BUN/Creatinine Ratio 15.9 (10-20) Glucose 147 H (70-99(Fasting)) mg/dl POC Glucose (70-99) mg/dl Estimat Average Glucose Hemoglobin A1c Lactate (0.4-2.0) mmol/L Calcium 8.1 L (8.6-10.3) mg/dl Total Bilirubin 1.6 H (0.2-1.0) mg/dl AST 38 (13-39) U/L ALT 23 (7-52) U/L Alkaline Phosphatase 109 H (34-104) U/L Total Protein 6.6 (6.0-8.3) gm/dl Albumin 2.9 L (3.4-5.0) gm/dl Globulin 3.7 (2.5-4.0) gm/dl Albumin/Globulin Ratio 0.8 L (0.9-2) Procalcitonin (0-0.5) ng/ml Urine Color Urine Appearance (Clear) Urine pH (4.5-7.5) Ur Specific [place] (1.000-1.030) Urine Protein (Negative) Urine Glucose (UA) (Negative) Urine Ketones (Negative) Urine Blood (Negative) Urine Nitrite (Negative) Urine Bilirubin (Negative) Urine Urobilinogen (Negative) Ur Leukocyte Esterase (Negative) Nasal Screen MRSA (PCR) (Negative) Diagnostic Findings Exam(s): US SOFT TISSUE EXAM: US Left Lower Extremity Non-Vascular, Limited CLINICAL HISTORY: Reason for exam: edema abscess. TECHNIQUE: Real-time ultrasound scan of the left lower extremity with image documentation. COMPARISON: No relevant prior studies available. FINDINGS: Soft tissues: There is a 1.9 x 0.7 x 1.6 cm complex fluid collection noted along the medial aspect of the left popliteal fossa. IMPRESSION: There is a 1.9 x 0.7 x 1.6 cm complex fluid collection noted along the medial aspect of the left popliteal fossa. This may represent an abscess. If further evaluation is clinically necessary, consider correlation with MRI
[2024-12-17 12:00] LABS: Estimated Average Glucose 111 mg/dl; Hemoglobin A1C 5.5 % (4.5-5.6)
[2024-12-17] MEDS: CEFEPIME 2000MG 2,000 MG/20 ML SYR IV SCH (12:07)
[2024-12-17] MEDS: HYDROmorphone INJ 0.5 MG/0.5 ML SYR IV SCH (12:55)
--- NOTE | 2024-12-17 13:42 | Ultrasound Report ---
BILATERAL LOWER EXTREMITY VENOUS DOPPLER HISTORY: Pain, swelling of left leg COMPARISON STUDY: None FINDINGS: No evidence of DVT seen of bilateral lower extremities. IMPRESSION: No DVT seen at the lower extremities. ACT 112: Negative or not required by law. Electronically signed by: Berlin Olmos M.D. 12/17/2024 1:40 PM
[2024-12-17] MEDS: LIDOCAINE 1%/EPINEPHRINE 1:100,000 50 ML VIAL INFIL ONE (14:21)
--- NOTE | 2024-12-17 14:25 | Procedure Note ---
Procedure Note Date of Service December 17, 2024 Patient was informed of procedure of Incision and drainage and benefits vs risks and informed consent obtained. The area of the left medial lower extremity was prepped with Betadine. The skin overlying abscess was anesthetized with 1% lidocaine with epinephrine about 6 cc. Once skin was anesthetized, 11 blade scalpel was used to make a cruciate incision and cloudy fluid immediately expressed, no mari pus. The wound was probed with forceps and needle log driver and more cloudy fluid was expressed. Rest of 4 cc of local anesthetic and saline was used to irrigate the wound until clear fluid returned. There was bleeding at wound base. 2 cc blood loss. The surrounding induration was significantly improved. 1/4 " plain packing was placed into wound and dressing applied. Patient tolerated procedure without difficulty. Coding Additional Codes Date of Service ([email or web address])
[2024-12-17] MEDS ORDERED: MoRPHine SULFATE 4 MG/ML 1 ML CARP\\VIAL IM PRN (14:26)
[2024-12-17] MEDS: MoRPHine SULFATE 4 MG/ML 1 ML CARP\\VIAL IV PRN (16:56)
--- NOTE | 2024-12-17 17:58 | Billing Data ---
Date of Service December 17, 2024 Coding Level of Care Code 36031 SUB INP/OBS CARE MIN
[2024-12-17] MEDS ORDERED: ACETAMINOPHEN 500 MG TAB PO PRN (18:24)
--- NOTE | 2024-12-17 20:22 | Billing Data ---
Date of Service December 17, 2024 Coding Level of Care Code 23093 INT INP/OBS CARE
--- NOTE | 2024-12-18 07:26 | Hospitalist Progress Note ---
Date of Service December 18, 2024 Assessment & Plan (1) Abscess of left lower extremity: (2) Thrombocytopenia: (3) Hypertension: (4) Type 2 diabetes mellitus: (5) GERD (gastroesophageal reflux disease): (6) Cellulitis of left lower extremity: Plan (1) Cellulitis of left lower extremity: -Patient with left lower extremity cellulitic infection that began 3 days ago. -[place] feverish at home; Afebrile on admission -No leukocytosis, tachycardia, or signs for sepsis at this time. -Blood cultures shows no growth of organisms -Wound Culture positive for Staph Aureus MRSA -Urinalysis: Normal -Knee x-ray showed diffuse subcutaneous edema. -Ultrasound soft tissue knee.There is complex fluid collection noted along the medial aspect of left popliteal fossa which may represent an abscess -Started on vancomycin and cefepime in the ED. Stop Cefepime. Continue Vancomycin -Surgery consultation for left knee abscess. Incision and Drainage was done (12/17) .Moderate amount of cloudy clear fluid but no mari pus , culture wasn't taken from the wound. -Switch IV Vancomycin to Doxycycline PO on discharge -Downgrade in pain management: Scheduled Tylenol, Toradol and oxycodone PRN. -Hopefully back to rehab tomorrow (2) Thrombocytopenia: -Platelets: 61>68>76 -Patient with thrombocytopenia without any known cause. -No prior records to review at this time. -PT/INR- 1.1/12.1 -Will hold anticoagulation at this time due to concerns for thrombocytopenia (3) Alcohol use disorder: -Patient with alcohol use disorder and currently is at [facility]. Originally from [place] -Denies any IV drug use. -Last drink was over 1 month ago. Will hold off on AAWS but will continue to monitor closely. -Will continue on home fluoxetine at this time. (4) GERD (gastroesophageal reflux disease): - Continue on Protonix 40 mg daily. (5) Type 2 diabetes mellitus: -Patient with a reported history of type 2 diabetes on Ozempic. Has never trialed metformin. -Patient's home regimen held on admission -Continue BSG checks, sliding-scale insulin, hypoglycemic protocol -Hemoglobin A1c : 5.5 (6) Hypertension: -Continue on Coreg twice daily. Dispo: Code: Full code Dispo: Med/Surg VTE prophylaxis: Encourage Ambulation Admission and Anticipated Discharge Date Admission Date: December 16, 2024 Supervising Physician Co-Signing Physician Notes I personally examined the patient and verified all bishop points of history and exam, discussed case, and agree with decision making with Dr Ramirez pain different but still fairly intense. hurts to bear weight so he's been avoiding bearing weight. vitals noted nad heent nc at mmm breathing unlabored no accessory muscles good effort skin with resolving erythema small areas of bruising where it appears erythema was most dense, minimally tender significantly regressed compared to outlined areas cellulitis w sepsis and abscess POA - s/p I&D - MRSA - doing better, continue v anco. pain control, hopefully home soon. appreciate surgical I&D Subjective Eliel is a 39 Y O Male with PMH of HTN, Diabetes, GERD and alcohol use disorder presented left lower extremity pain and redness for 4 days and abscess in medial side of patella . He is admitted for Cellulitis of Left Lower Extremity and Abscess Overnight events: Not able to sleep because of pain Ongoing Symptoms: Reported pain is of same intensity as yesterday. Trying to walk around the room and hallway with the help of walker. Denies fever, dizziness New concerns: No any Review of Systems Review of Systems: As per HPI Physical Exam Constitutional: WD/WN, vitals as above well developed; no acute distress Eyes: PERRL, conjunctivae normal, anicteric sclerae ENMT: external ear and nose normal, oropharynx normal Ears: no hearing impairment Neck: trachea midline, no thyromegaly trachea midline Respiratory: normal respiratory effort, lungs clear to auscultation normal respiratory effort and + respiratory distress; no labored breathing and no retractions Auscultation: lungs clear to auscultation bilaterally Cardiovascular: RRR, no murmur, no edema Rate/Rhythm: regular rate and regular rhythm Chest (Breasts): normal inspection/palpation of breasts Chest: normal ins pection of chest Results & Data Results & Data Vital Signs (Past 12 Hours) Vital Signs Temp Pulse Resp BP Pulse Ox O2 Del Method 12/17/24 19:28 36.9 C 81 19 125/72 96 Room Air
[2024-12-18 08:10] LABS: Basophils # (auto) 0.03 K/uL (0.00-0.20); Basophils % (auto) 0.6 %; Eosinophils # (auto) 0.23 K/uL (0.00-0.50); Eosinophils % (auto) 4.6 %; Hematocrit (blood only) 33.1 % (42.0-52.0); Hemoglobin 11.7 g/dl (14.0-18.0); Immature Granulocytes # (auto) 0.02 K/uL (0.01-0.20); Immature Granulocytes % (auto) 0.4 %; Lymphocytes # (auto) 0.65 K/uL (1.20-3.40); Mean Corpuscular Hemoglobin 33.9 pg (25.0-34.0); Mean Corpuscular Hgb Conc 35.3 g/dL (32.0-36.0); Mean Corpuscular Volume 95.9 fL (80.0-100.0); Mean Platelet Volume 11.4 fL (9.4-12.4); Monocytes # (auto) 0.75 K/uL (0.11-0.59); Neutrophils # (auto) 3.33 K/uL (1.40-6.50); Neutrophils % (auto) 66.4 %; Platelet Count 82 K/uL (130-400); RDW Coefficient of Variation 13.8 % (11.5-14.5); RDW Standard Deviation 48.7 fL (36.4-46.3); Red Blood Count 3.45 M/uL (4.70-6.10); White Blood Count 5.01 K/ul (4.8-10.8)
[2024-12-18 08:20] LABS: Albumin Globulin Ratio 0.7 (0.9-2); Albumin Level 2.5 gm/dl (3.4-5.0); Bilirubin,Total 1.3 mg/dl (0.2-1.0); Calcium 7.2 mg/dl (8.6-10.3); Creatinine Clr Calc Pharmacy 142.2 ml/min; Globulin 3.8 gm/dl (2.5-4.0); Potassium 4.2 mmol/L (3.5-5.1); Total Protein 6.3 gm/dl (6.0-8.3)
--- NOTE | 2024-12-18 09:55 | Surgery Progress Note ---
Date of Service December 18, 2024 Assessment & Plan (1) Cellulitis of left lower extremity: (2) Abscess of left lower extremity: Plan s/p I&D at bedside culture with MRSA cellulitis improving no leukocytosis moderate pain, continue pain management change dressing as needed keep packing in place for today encouraged ambulation and elevation of left leg Dr. Jama has seen and examined pt, agrees with above. Admission and Anticipated Discharge Date Admission Date: December 16, 2024 Subjective still having moderate to severe pain, somewhat controlled with Morphine, moody upon administration no fevers or chills swelling of leg stable, has elevated on pillows has not been out of bed ambulating Physical Exam Constitutional: WD/WN, vitals as above no acute distress and not ill appearing Respiratory: normal respiratory effort; no respiratory distress Musculoskeletal: Left lower extremity: I&D site with persistent induration but erythema has improved. Tender to palpation. Packing in place with bloody serous drainage. Moderate swelling of the LLE down to the foot, with stasis dermatitis. Psychiatric: Orientation: alert and oriented x 3 Results & Data Vital Signs (Past 12 Hours) Vital Signs Temp Pulse Resp BP Pulse Ox O2 Del Method 12/18/24 08:26 80 151/85 H 12/18/24 07:29 36.9 C 84 16 125/81 95 Room Air Laboratory Results 12/18/24 12/18/24 12/17/24 Range/Units 07:49 07:28 21:23 WBC 5.01 (4.8-10.8) K/ul RBC 3.45 L (4.70-6.10) M/uL Hgb 11.7 L (14.0-18.0) g/dl Hct 33.1 L (42.0-52.0) % MCV 95.9 (80.0-100.0) fL MCH 33.9 (25.0-34.0) pg MCHC 35.3 (32.0-36.0) g/dL RDW Std Deviation 48.7 H (36.4-46.3) fL RDW Coeff of Katelyn 13.8 (11.5-14.5) % Plt Count 82 L (130-400) K/uL MPV 11.4 (9.4-12.4) fL Immature Gran % (Auto) 0.4 % Neut % (Auto) 66.4 % Lymph % (Auto) 13.0 % [place] % (Auto) 15.0 % Eos % (Auto) 4.6 % Baso % (Auto) 0.6 % Neut # (Auto) 3.33 (1.40-6.50) K/uL Lymph # (Auto) 0.65 L (1.20-3.40) K/uL [place] # (Auto) 0.75 H (0.11-0.59) K/uL Eos # (Auto) 0.23 (0.00-0.50) K/uL Baso # (Auto) 0.03 (0.00-0.20) K/uL Immature Gran # (Auto) 0.02 (0.01-0.20) K/uL Sodium 136 (136-145) mmol/L Potassium 4.2 (3.5-5.1) mmol/L Chloride 108 H (98-107) mmol/L Carbon Dioxide 24 (21-32) mmol/L Anion Gap 4 (3-11) BUN 12 (6-23) mg/dl Creatinine 0.86 (0.6-1.4) mg/dl Est Cr Clr Drug Dosing 142.2 ml/min eGFR 111.56 BUN/Creatinine Ratio 14.0 (10-20) Glucose 139 H (70-99(Fasting)) mg/dl POC Glucose 162 H 94 (70-99) mg/dl Estimat Average Glucose mg/dl Hemoglobin A1c (4.5-5.6) % Calcium 7.2 L (8.6-10.3) mg/dl Total Bilirubin 1.3 H (0.2-1.0) mg/dl AST 29 (13-39) U/L ALT 19 (7-52) U/L Alkaline Phosphatase 89 (34-104) U/L Total Protein 6.3 (6.0-8.3) gm/dl Albumin 2.5 L (3.4-5.0) gm/dl Globulin 3.8 (2.5-4.0) gm/dl Albumin/Globulin Ratio 0.7 L (0.9-2) 12/17/24 12/17/24 12/17/24 Range/Units 16:32 11:36 07:47 WBC (4.8-10.8) K/ul RBC (4.70-6.10) M/uL Hgb (14.0-18.0) g/dl Hct (42.0-52.0) % MCV (80.0-100.0) fL MCH (25.0-34.0) pg MCHC (32.0-36.0) g/dL RDW Std Deviation (36.4-46.3) fL RDW Coeff of Katelyn (11.5-14.5) % Plt Count (130-400) K/uL MPV (9.4-12.4) fL Immature Gran % (Auto) % Neut % (Auto) % Lymph % (Auto) % [place] % (Auto) % Eos % (Auto) % Baso % (Auto) % Neut # (Auto) (1.40-6.50) K/uL Lymph # (Auto) (1.20-3.40) K/uL [place] # (Auto) (0.11-0.59) K/uL Eos # (Auto) (0.00-0.50) K/uL Baso # (Auto) (0.00-0.20) K/uL Immature Gran # (Auto) (0.01-0.20) K/uL Sodium (136-145) mmol/L Potassium (3.5-5.1) mmol/L Chloride (98-107) mmol/L Carbon Dioxide (21-32) mmol/L Anion Gap (3-11) BUN (6-23) mg/dl Creatinine (0.6-1.4) mg/dl Est Cr Clr Drug Dosing ml/min eGFR BUN/Creatinine Ratio (10-20) Glucose (70-99(Fasting)) mg/dl POC Glucose 138 H 87 (70-99) mg/dl Estimat Average Glucose 111 mg/dl Hemoglobin A1c 5.5 (4.5-5.6) % Calcium (8.6-10.3) mg/dl Total Bilirubin (0.2-1.0) mg/dl AST (13-39) U/L ALT (7-52) U/L Alkaline Phosphatase (34-104) U/L Total Protein (6.0-8.3) gm/dl Albumin (3.4-5.0) gm/dl Globulin (2.5-4.0) gm/dl Albumin/Globulin Ratio (0.9-2) Microbiology 12/16/24 Unknown Gram Stain - Final Leg Aerobic and Anaerobic Culture - Preliminary Staph aureus MRSA 12/16/24 22:54 Aerobic Blood Culture - Preliminary Blood No growth in Aerobic bottle after 24 hours. Anaerobic Blood Culture - Preliminary No growth in Anaerobic bottle after 24 hours. 12/16/24 22:50 Aerobic Blood Culture - Preliminary Blood No growth in Aerobic bottle after 24 hours. Anaerobic Blood Culture - Preliminary No growth in Anaerobic bottle after 24 hours.
[2024-12-18] MEDS: ACETAMINOPHEN 500 MG TAB PO SCH (15:53)
--- NOTE | 2024-12-18 16:35 | Billing Data ---
Date of Service December 18, 2024 Coding Level of Care Code 97673 SUB INP/OBS CARE MIN
--- NOTE | 2024-12-18 16:37 | Billing Data ---
Date of Service December 18, 2024 Coding Level of Care Code 85289 SUB INP/OBS CARE MIN
[2024-12-19] MEDS: MoRPHine SULFATE 2 MG/ML CARP IV PRN (05:30)
--- NOTE | 2024-12-19 07:44 | Hospitalist Progress Note ---
Date of Service December 19, 2024 Assessment & Plan (1) Abscess of left lower extremity: (2) Thrombocytopenia: (3) Hypertension: (4) Type 2 diabetes mellitus: (5) GERD (gastroesophageal reflux disease): (6) Cellulitis of left lower extremity: Plan (1) Cellulitis of left lower extremity: -Patient with left lower extremity cellulitic infection that began 3 days ago. -[place] feverish at home; Afebrile on admission -No leukocytosis, tachycardia, or signs for sepsis at this time. -Blood cultures pending -Wound Culture pending -Urinalysis: Normal -Knee x-ray showed diffuse subcutaneous edema. -Ultrasound soft tissue knee.There is complex fluid collection noted along the m edial aspect of left popliteal fossa which may represent an abscess -Started on vancomycin and cefepime in the ED. Stop Cefepime. Continue Vancomycin -Surgery consultation today. Incision and Drainage was done (12/17) .Moderate amount of cloudy clear fluid but no mari pus , culture wasn't taken from the wound. -Morphine for Pain (2) Thrombocytopenia: -Platelets: 61>68 -Patient with thrombocytopenia without any known cause. -No prior records to review at this time. -PT/INR- 1.1/12.1 -Will hold anticoagulation at this time due to concerns for thrombocytopenia (3) Alcohol use disorder: -Patient with alcohol use disorder and currently is at [facility]. Originally from [place] -Denies any IV drug use. -Last drink was over 1 month ago. Will hold off on AAWS but will continue to m onitor closely. -Will continue on home fluoxetine at this time. (4) GERD (gastroesophageal reflux disease): - Continue on Protonix 40 mg daily. (5) Type 2 diabetes mellitus: -Patient with a reported history of type 2 diabetes on Ozempic. Has never trialed metformin. -Patient's home regimen held on admission -Continue BSG checks, sliding-scale insulin, hypoglycemic protocol -Hemoglobin A1c : 5.5 (6) Hypertension: -Continue on Coreg twice daily. Dispo: Code: Full code Dispo: Med/Surg VTE prophylaxis: Ambulation Admission and Anticipated Discharge Date Admission Date: December 16, 2024 Keith Julian is a 39 Y O Male with PMH of HTN, Diabetes, GERD and alcohol use disorder presented left lower extremity pain and redness for 4 days and abscess in medial side of patella . He is admitted for Cellulitis of Left Lower Extremity and Abscess Overnight events: Not able to sleep because of pain Ongoing Symptoms: Cannot move knee joint and is unable to walk due to pain. Not ambulating. Denies fever, dizziness New concerns: No any Review of Systems Review of Systems: As per HPI Physical Exam Constitutional: WD/WN, vitals as above well developed; no acute distress Eyes: PERRL, conjunctivae normal, anicteric sclerae ENMT: external ear and nose normal, oropharynx normal Ears: no hearing impairment Neck: trachea midline, no thyromegaly trachea midline Respiratory: normal respiratory effort, lungs clear to auscultation normal respiratory effort and + respiratory distress; no labored breathing and no retractions Auscultation: lungs clear to auscultation bilaterally Cardiovascular: RRR, no murmur, no edema Rate/Rhythm: regular rate and regular rhythm Chest (Breasts): normal inspection/palpation of breasts Chest: normal inspection of chest Results & Data Results & Data Vital Signs (Past 12 Hours) Vital Signs Temp Pulse Resp BP Pulse Ox Pulse Ox O2 Del Method 12/19/24 07:40 36.7 C 71 16 135/73 95 Room Air 12/18/24 23:16 98 O2 Del Method 12/19/24 07:40 12/18/24 23:16 Room Air
[2024-12-19] MEDS: VANCOMYCIN LEVEL ONE (08:51)
[2024-12-19 09:09] LABS: Basophils # (auto) 0.03 K/uL (0.00-0.20); Basophils % (auto) 0.8 %; Eosinophils # (auto) 0.19 K/uL (0.00-0.50); Hemoglobin 11.4 g/dl (14.0-18.0); Immature Granulocytes # (auto) 0.02 K/uL (0.01-0.20); Immature Granulocytes % (auto) 0.5 %; Lymphocytes # (auto) 0.53 K/uL (1.20-3.40); Lymphocytes % (auto) 13.9 %; Mean Corpuscular Hemoglobin 33.6 pg (25.0-34.0); Mean Corpuscular Hgb Conc 35.6 g/dL (32.0-36.0); Mean Corpuscular Volume 94.4 fL (80.0-100.0); Mean Platelet Volume 10.8 fL (9.4-12.4); Monocytes # (auto) 0.46 K/uL (0.11-0.59); Monocytes % (auto) 12.1 %; Neutrophils # (auto) 2.57 K/uL (1.40-6.50); Neutrophils % (auto) 67.7 %; Platelet Count 76 K/uL (130-400); RDW Coefficient of Variation 13.5 % (11.5-14.5); RDW Standard Deviation 46.6 fL (36.4-46.3); Red Blood Count 3.39 M/uL (4.70-6.10)
[2024-12-19 09:28] LABS: Albumin Globulin Ratio 0.7 (0.9-2); Albumin Level 2.6 gm/dl (3.4-5.0); BUN Creatinine Ratio 19.7 (10-20); Bilirubin,Total 1.2 mg/dl (0.2-1.0); Calcium 7.3 mg/dl (8.6-10.3); Creatinine Clr Calc Pharmacy 172.2 ml/min; Globulin 3.7 gm/dl (2.5-4.0); Potassium 4.2 mmol/L (3.5-5.1); Total Protein 6.3 gm/dl (6.0-8.3)
--- NOTE | 2024-12-19 09:33 | Surgery Progress Note ---
Date of Service December 19, 2024 Assessment & Plan (1) Abscess of left lower extremity: Plan: con't dressings IV abx switch to po abx and discharge possibly in AM Admission and Anticipated Discharge Date Admission Date: December 16, 2024 Subjective pain improved still with some drainage Review of Systems Constitutional: no fever and no chills Respiratory: no cough and no dyspnea Cardiovascular: no chest pain Gastrointestinal: no abdominal pain Physical Exam Skin: no rashes, warm and dry left leg stasis dermatitis erythema improving no fluctuance Results & Data Vital Signs (Past 12 Hours) Vital Signs Temp Pulse Resp BP Pulse Ox Pulse Ox O2 Del Method 12/19/24 07:40 36.7 C 71 16 135/73 95 Room Air 12/18/24 23:16 98 O2 Del Method 12/19/24 07:40 12/18/24 23:16 Room Air
--- NOTE | 2024-12-19 11:11 | Pharmacy Report ---
Pharmacy PK ABX Note - Date of Service December 19, 2024 - Assessment and Plan Assessment 12/19: * Vancomycin level this morning was 13 which extrapolates to a therapeutic AUC (491mg/L.hr). Vancomycin 1250mg iv q 8 hours will be continued as previously ordered. * s/p I&D. Leg culture grew MRSA, vanco BRITTANY= 1. * Preliminary blood cultures from 12/16 are NGTD. * Cellulitis is improving per report, pt is afebrile and without leukocytosis. 12/17: * 39 year old M with PMH of HTN, DM, and GERD who presented with left lower extremity cellulitis. Ultrasound of knee revealed a complex fluid collection which may represent an abscess. * Patient has been started on cefepime + vancomycin IV. Left leg gram stain growing gram positive cocci, culture results pending. BC pending. Plan Vancomycin * Vanco level this morning was 13mcg/mL which is predicted to achieve target AUC/BRITTANY of 400-600 mg/L.hr * Continue maintenance dose: 1250 mg IV every 8 hours * Another vanco level will be ordered in the next 72 hours or as clinically necessary. Pharmacy will continue to follow and will adjust dose/frequency as necessary. Thank you. Pharmacy has transitioned to AUC monitoring for vancomycin. AUC/BRITTANY is the preferred PK/PD target and is associated with decreased risk of nephrotoxicity compared to traditional trough targets.
--- NOTE | 2024-12-19 13:16 | Hospitalist Progress Note ---
Date of Service December 19, 2024 Assessment & Plan (1) Abscess of left lower extremity: (2) Thrombocytopenia: (3) Hypertension: (4) Type 2 diabetes mellitus: (5) GERD (gastroesophageal reflux disease): (6) Cellulitis of left lower extremity: Plan (1) Cellulitis of left lower extremity: -Patient with left lower extremity cellulitic infection that began 3 days ago. -[place] feverish at home; Afebrile on admission -No leukocytosis, tachycardia, or signs for sepsis at this time. -Blood cultures shows no growth of organisms -Wound Culture positive for Staph Aureus MRSA -Urinalysis: Normal -Knee x-ray (12/17)showed diffuse subcutaneous edema. -Ultrasound soft tissue knee.There is complex fluid collection noted along the medial aspect of left popliteal fossa which may represent an abscess -Started on vancomycin and cefepime in the ED. Stop Cefepime. Continue Vancomycin -Surgery consultation for left knee abscess. Incision and Drainage was done (12/17) .Moderate amount of cloudy clear fluid but no mari pus , culture wasn't taken from the wound. -Switch IV Vancomycin to Doxycycline PO on discharge -Downgrade in pain management: Scheduled Tylenol, Toradol and oxycodone PRN. -Hopefully back to rehab tomorrow (2) Thrombocytopenia: -Platelets: 61>68>76 -Patient with thrombocytopenia possibly due to Alcohol induced bone marrow suppression. -No prior records to review at this time. -PT/INR- 1.1/12.1 -Will hold anticoagulation at this time due to concerns for thrombocytopenia (3) Alcohol use disorder: -Patient with alcohol use disorder and currently is at [facility]. Originally from [place] -Denies any IV drug use. -Last drink was over 1 month ago. Will hold off on AAWS but will continue to monitor closely. -Will continue on home fluoxetine at this time. (4) GERD (gastroesophageal reflux disease): - Continue on Protonix 40 mg daily. (5) Type 2 diabetes mellitus: -Patient with a reported history of type 2 diabetes on Ozempic. Has never trialed metformin. -Patient's home regimen held on admission -Continue BSG checks, sliding-scale insulin, hypoglycemic protocol -Hemoglobin A1c : 5.5 (6) Hypertension: -Continue on Coreg twice daily. Dispo: Code: Full code Dispo: Med/Surg VTE prophylaxis: Encourage Ambulation Admission and Anticipated Discharge Date Admission Date: December 16, 2024 Supervising Physician Co-Signing Physician Notes I personally examined the patient and verified all bishop points of history and exam, discussed case, and agree with decision making with Dr James gutierrez. doing better. [facility] doesn't have a bed for him until tomorrow. vitals noted nad heent nc at mmm breathing unlabored no accessory muscles good effort skin with resolving erythema small areas of bruising where it appears erythema was most dense, minimally tender significantly regressed compared to outlined areas cellulitis w sepsis and abscess POA - s/p I&D - MRSA - doing better, continue vanco->transition to doxy at discharge. pain control, hopefully home tomorrow. appreciate surgical I&D Subjective Eliel is a 39 Y O Male with PMH of HTN, Diabetes, GERD and alcohol use disorder presented left lower extremity pain and redness for 4 days and abscess in medial side of patella . He is admitted for Cellulitis of Left Lower Extremity and Abscess Overnight events: Not able to sleep because of pain Ongoing Symptoms: Reported pain is of same intensity as yesterday. Trying to walk around the room and hallway with the help of walker. Denies fever, dizziness New concerns: No any Review of Systems Review of Systems: As per HPI Physical Exam Constitutional: WD/WN, vitals as above well developed; no acute distress Eyes: PERRL, conjunctivae normal, anicteric sclerae ENMT: external ear and nose normal, oropharynx normal Ears: no hearing impairment Neck: trachea midline, no thyromegaly trachea midline Respiratory: normal respiratory effort, lungs clear to auscultation normal respiratory effort and + respiratory distress; no labored breathing and no retractions Auscultation: lungs clear to auscultation bilaterally Cardiovascular: RRR, no murmur, no edema Rate/Rhythm: regular rate and regular rhythm Chest (Breasts): normal inspection/palpation of breasts Chest: normal inspection of chest Musculoskeletal: Leg erythema improving, swelling improving, Tenderness + Results & Data Results & Data Vital Signs (Past 12 Hours) Vital Signs Temp Pulse Resp BP Pulse Ox O2 Del Method 12/19/24 07:40 36.7 C 71 16 135/73 95 Room Air
[2024-12-19] MEDS: KETOROLAC TROMETHAMINE 15 MG/ML VIAL IV SCH (15:18)
[2024-12-19] MEDS: oxyCODONE HCL IR 5 MG TAB (IMMEDIATE RELEASE) PO PRN (17:21)
--- NOTE | 2024-12-19 18:12 | Billing Data ---
Date of Service December 19, 2024 Coding Level of Care Code 83813 SUB INP/OBS CARE
[2024-12-20 07:54] LABS: Basophils # (auto) 0.02 K/uL (0.00-0.20); Basophils % (auto) 0.9 %; Eosinophils # (auto) 0.14 K/uL (0.00-0.50); Hematocrit (blood only) 29.1 % (42.0-52.0); Hemoglobin 10.4 g/dl (14.0-18.0); Immature Granulocytes # (auto) 0.01 K/uL (0.01-0.20); Immature Granulocytes % (auto) 0.4 %; Lymphocytes # (auto) 0.48 K/uL (1.20-3.40); Lymphocytes % (auto) 20.7 %; Mean Corpuscular Hemoglobin 33.7 pg (25.0-34.0); Mean Corpuscular Hgb Conc 35.7 g/dL (32.0-36.0); Mean Corpuscular Volume 94.2 fL (80.0-100.0); Mean Platelet Volume 10.6 fL (9.4-12.4); Monocytes # (auto) 0.38 K/uL (0.11-0.59); Monocytes % (auto) 16.4 %; Neutrophils # (auto) 1.29 K/uL (1.40-6.50); Neutrophils % (auto) 55.6 %; Platelet Count 63 K/uL (130-400); RDW Coefficient of Variation 13.6 % (11.5-14.5); RDW Standard Deviation 46.6 fL (36.4-46.3); Red Blood Count 3.09 M/uL (4.70-6.10); White Blood Count 2.32 K/ul (4.8-10.8)
[2024-12-20 08:13] LABS: Albumin Globulin Ratio 0.7 (0.9-2); Albumin Level 2.4 gm/dl (3.4-5.0); BUN Creatinine Ratio 23.7 (10-20); Bilirubin,Total 1.1 mg/dl (0.2-1.0); Creatinine Clr Calc Pharmacy 160.9 ml/min; Globulin 3.4 gm/dl (2.5-4.0); Potassium 4.1 mmol/L (3.5-5.1); Total Protein 5.8 gm/dl (6.0-8.3)
--- NOTE | 2024-12-20 09:15 | Surgery Progress Note ---
Date of Service December 20, 2024 Assessment & Plan (1) Abscess of left lower extremity: Plan: POD # 3 s/p bedside I&D of LLE abscess afebrile okay from surgical standpoint for discharge con't dressings, change daily and as needed follow up wound care center elevate leg pain management as needed oral abx as per medical team Discussed with Dr. farah who agrees with above Admission and Anticipated Discharge Date Admission Date: December 16, 2024 Subjective feeling better pain has improved ambulating tolerating diet no fevers or chills Physical Exam Constitutional: WD/WN, vitals as above no acute distress and not ill appearing Respiratory: normal respiratory effort; no respiratory distress Musculoskeletal: Left lower extremity with moderate swelling of the calf down to foot, has improved stasis dermatitis of left lower calf Open wound of the medial knee with fibrinous tissue present, no necrosis, no fluctuance, moderate induration, improving Results & Data Vital Signs (Past 12 Hours) Vital Signs Temp Pulse Resp BP Pulse Ox Pulse Ox O2 Del Method 12/20/24 07:38 36.6 C 65 16 138/78 94 Room Air 12/19/24 23:04 95 O2 Del Method 12/20/24 07:38 12/19/24 23:04 Room Air Laboratory Results 12/20/24 12/20/24 12/19/24 Range/Units 07:35 07:27 20:45 WBC 2.32 L (4.8-10.8) K/ul RBC 3.09 L (4.70-6.10) M/uL Hgb 10.4 L (14.0-18.0) g/dl Hct 29.1 L (42.0-52.0) % MCV 94.2 (80.0-100.0) fL MCH 33.7 (25.0-34.0) pg MCHC 35.7 (32.0-36.0) g/dL RDW Std Deviation 46.6 H (36.4-46.3) fL RDW Coeff of Katelyn 13.6 (11.5-14.5) % Plt Count 63 L (130-400) K/uL MPV 10.6 (9.4-12.4) fL Immature Gran % (Auto) 0.4 % Neut % (Auto) 55.6 % Lymph % (Auto) 20.7 % [place] % (Auto) 16.4 % Eos % (Auto) 6.0 % Baso % (Auto) 0.9 % Neut # (Auto) 1.29 L (1.40-6.50) K/uL Lymph # (Auto) 0.48 L (1.20-3.40) K/uL [place] # (Auto) 0.38 (0.11-0.59) K/uL Eos # (Auto) 0.14 (0.00-0.50) K/uL Baso # (Auto) 0.02 (0.00-0.20) K/uL Immature Gran # (Auto) 0.01 (0.01-0.20) K/uL Sodium 138 (136-145) mmol/L Potassium 4.1 (3.5-5.1) mmol/L Chloride 111 H (98-107) mmol/L Carbon Dioxide 25 (21-32) mmol/L Anion Gap 2 L (3-11) BUN 18 (6-23) mg/dl Creatinine 0.76 (0.6-1.4) mg/dl Est Cr Clr Drug Dosing 160.9 ml/min eGFR 115.80 BUN/Creatinine Ratio 23.7 H (10-20) Glucose 89 (70-99(Fasting)) mg/dl POC Glucose 87 159 H (70-99) mg/dl Calcium 7.0 L (8.6-10.3) mg/dl Total Bilirubin 1.1 H (0.2-1.0) mg/dl AST 32 (13-39) U/L ALT 16 (7-52) U/L Alkaline Phosphatase 83 (34-104) U/L Total Protein 5.8 L (6.0-8.3) gm/dl Albumin 2.4 L (3.4-5.0) gm/dl Globulin 3.4 (2.5-4.0) gm/dl Albumin/Globulin Ratio 0.7 L (0.9-2) 12/19/24 12/19/24 Range/Units 16:34 11:35 WBC (4.8-10.8) K/ul RBC (4.70-6.10) M/uL Hgb (14.0-18.0) g/dl Hct (42.0-52.0) % MCV (80.0-100.0) fL MCH (25.0-34.0) pg MCHC (32.0-36.0) g/dL RDW Std Deviation (36.4-46.3) fL RDW Coeff of Katelyn (11.5-14.5) % Plt Count (130-400) K/uL MPV (9.4-12.4) fL Immature Gran % (Auto) % Neut % (Auto) % Lymph % (Auto) % [place] % (Auto) % Eos % (Auto) % Baso % (Auto) % Neut # (Auto) (1.40-6.50) K/uL Lymph # (Auto) (1.20-3.40) K/uL [place] # (Auto) (0.11-0.59) K/uL Eos # (Auto) (0.00-0.50) K/uL Baso # (Auto) (0.00-0.20) K/uL Immature Gran # (Auto) (0.01-0.20) K/uL Sodium (136-145) mmol/L Potassium (3.5-5.1) mmol/L Chloride (98-107) mmol/L Carbon Dioxide (21-32) mmol/L Anion Gap (3-11) BUN (6-23) mg/dl Creatinine (0.6-1.4) mg/dl Est Cr Clr Drug Dosing ml/min eGFR BUN/Creatinine Ratio (10-20) Glucose (70-99(Fasting)) mg/dl POC Glucose 122 H 157 H (70-99) mg/dl Calcium (8.6-10.3) mg/dl Total Bilirubin (0.2-1.0) mg/dl AST (13-39) U/L ALT (7-52) U/L Alkaline Phosphatase (34-104) U/L Total Protein (6.0-8.3) gm/dl Albumin (3.4-5.0) gm/dl Globulin (2.5-4.0) gm/dl Albumin/Globulin Ratio (0.9-2) Microbiology 12/16/24 Unknown Gram Stain - Final Leg Aerobic and Anaerobic Culture - Preliminary Staph aureus MRSA
--- NOTE | 2024-12-20 12:46 | Discharge Summary ---
Date of Service December 20, 2024 Admission HPI Per Admitting Provider Patient is a 39-year-old male with past medical history of hypertension, diabetes, GERD, alcohol use disorder who presents to the hospital with left lower extremity cellulitis. Patient comes from [facility]. [facility] States that for the last 3 days he has been having left lower extremity pain and redness. Denies any falls or injuries to the area. He also states that he has felt febrile but has been taking Tylenol to help. States that today he had some drainage around the area as well. Never had issues like this previously. Denies injecting any material into the left lower extremity. Denies any history of IV drug use. States that he is in [facility] for alcoholism. States his last drink was over 1 month ago. He is currently been at [facility] for the last 2 weeks. He also states that he is therefore mental health reasons as well. Admission Exam Per Admitting Provider Constitutional: well-appearing, no acute distress HEENT: NCAT, no conjunctival injection CV: regular rhythm, no murmur appreciated, extremities well-perfused, no LE edema Resp: CTABL, no wheezes/rales/rhonchi appreciated, no increased work of breathing GI: soft, nondistended, nontender, BS normoactive MSK: no gross deformities appreciated Skin: Left lower extremity swelling, erythema, and warmth from the left ankle up to the left knee Neuro: alert, oriented, no focal neurologic deficit appreciated Principal Diagnosis 1. Abscess in medial aspect of left knee 2. Cellulitis if left lower extremity 3 Thrombocytopenia 4 Alcohol Use Disorder 5. GERD 6. DM II 7 Hypertension Discharge Exam WD/WN, vitals as above well developed; no acute distress Eyes: PERRL, conjunctivae normal, anicteric sclerae ENMT: external ear and nose normal, oropharynx normal Ears: no hearing impairment Neck: trachea midline, no thyromegaly trachea midline Respiratory: normal respiratory effort, lungs clear to auscultation normal respiratory effort and + respiratory distress; no labored breathing and no retractions Auscultation: lungs clear to auscultation bilaterally Cardiovascular: RRR, no murmur, no edema Rate/Rhythm: regular rate and regular rhythm Chest (Breasts): normal inspection/palpation of breasts Chest: normal inspection of chest Musculoskeletal: Leg erythema improving, swelling improving, Tenderness + Discharge Data Allergies Allergy/AdvReac Type Severity Reaction Status Date / Time No Known Allergies Allergy Unverified 12/16/24 22:39 Consultations 12/16/24 22:12 ED Decision to Admit Stat 12/17/24 09:59 Consult General Surgery Routine Ordered Studies 12/16/24 21:44 US soft tissue ext ltd Routine 12/17/24 12:07 US leg [US venous doppler LE BI] Routine Hospital Course (1) Abscess of left lower extremity: (2) Thrombocytopenia: (3) Hypertension: (4) Type 2 diabetes mellitus: (5) GERD (gastroesophageal reflux disease): (6) Alcohol use disorder: (7) Cellulitis of left lower extremity: (1) Cellulitis of left lower extremity: -Patient with left lower extremity cellulitic infection that began 3 days ago. -Warren feverish at home; Afebrile on admission -No leukocytosis, tachycardia, or signs for sepsis at this time. -Blood cultures shows no growth of organisms -Wound Culture positive for Staph Aureus MRSA -Urinalysis: Normal -Knee x-ray (12/17)showed diffuse subcutaneous edema. -Ultrasound soft tissue knee.There is complex fluid collection noted along the medial aspect of left popliteal fossa which may represent an abscess -Started on vancomycin and cefepime in the ED. Stop Cefepime. Continue Vanc omycin -Surgery consultation for left knee abscess. Incision and Drainage was done (12/17) .Moderate amount of cloudy clear fluid but no mari pus , culture wasn't taken from the wound. -Discharge today -Switch IV Vancomycin to Doxycycline PO on discharge -Recommended Doxycycline 100 mg BID for 7 days -Toradol 10mg PO TID for 3 to 5 days -Follow up with wound care within a week (2) Thrombocytopenia: -Platelets: 61>68>76>63 -Patient with thrombocytopenia possibly due to Alcohol induced bone marrow suppression. -No prior records to review at this time. -PT/INR- 1.1/12.1 (3) Alcohol use disorder: -Patient with alcohol use disorder and [facility]. Originally from [place], [place] -Denies any IV drug use. -Last drink was over 1 month ago. Will hold off on AAWS but will continue to monitor closely. -l continue on home fluoxetine at this time. -Back to rehav today (4) GERD (gastroesophageal reflux disease): - Continue on Protonix 40 mg daily. (5) Type 2 diabetes mellitus: -Continue home meds (6) Hypertension: -Continue on Coreg twice daily. Total Time Total Time Spent Total Time Spent (In Minutes): 50% of patient care Discharge Plan Discharge Items Patient Disposition: Drug & Alcohol Rehab Reason For Visit: CELLULITIS Discharge Diagnosis: 1. Abscess in medial aspect of left knee 2. Cellulitis if left lower extremity 3 Thrombocytopenia 4 Alcohol Use Disorder 5. GERD 6. DM II 7 Hypertension Activity: Per Instructions section Non-emergency contact: Primary Care Provider and Surgeon Call non-emergency contact if: you have any medication questions, your symptoms worsen, your pain is not controlled, your pain is worsening, your pain is unusual for you, your pain is concerning for you, your temperature is above 101, your wound has increased redness, your wound has increased drainage and your wound pain has increased Follow-up/Referrals: Flavio Jama MD [Physician] - PCP,NO [Primary Care Provider] - Diet: Regular Addtl Attending Provider Instructions: You presented to ER due to pain and redness in left lower extremity and Abscess in medial side of Patella. You had Cellulitis of left lower extremity with Abscess in medial aspect of left knee. You had Incision and Drainage for abscess. You were treated with Antibiotics and Analgesics. You will be given a prescription for antibiotics to take at home. This sheet will help you take care of yourself at home. A discharge summary will be sent to your primary care physician to ensure continuity of care. Please bring this discharge summary with you to your next office appointment so that your provider can review it at that time. Follow-up appointments: Make a follow-up appointment with your PCP within the next week. It is very important that you follow up with them shortly after discharge from the hospital. We have requested an appointment with Wound Care so they can help ensure your infection continues to improve. Their schedulers should reach out to you within the next day or two to schedule that appointment. If you do not hear from them by DAY, please contact their office at [phone].] Keep all your follow-up appointments as already scheduled. If you cannot make an appointment, notify your provider. Medications: Your medication list has been reviewed and reconciled upon discharge to ensure accuracy and continuity of care. An updated list of all your medications is included with your hospital discharge paperwork. Please review this list closely, and make note of any changes. We sent a new medication called Doxycycline to your pharmacy. Take Doxycycline 100mg twice daily for 7 days. We sent a new medication called Toradol to your pharmacy. Take Toradol 10mg PO TID for 3 days and then as needed. Take your medications as instructed; do not skip a dose of your medicines. Make sure all of your doctors know every medicine you are taking (including yvid-lcs-[id number] medicines, vitamins, and supplements). Call your primary care provider before taking any new medicines (including overthe- counter medicines, vitamins, and supplements), because some of these may interact with your current medications, or may make your symptoms worse. Tell your primary care provider if you cannot afford your medications. Home care: Take the prescribed antibiotic medicine you are given as directed, until it is gone. Take it even if you feel better, because it treats the infection and prevents it from returning. Not taking all the medicine can make future infections hard to treat. Keep the infected area clean. Apply clean bandages as advised. When possible, raise the infected area above the level of your heart; this keeps the swelling down. Talk with your healthcare provider if you are in pain, and ask what kind of ywei-yka-rzztdze medicine you can use for pain. Take your temperature once a day for a week. Wash your hands often to prevent spreading infection. CONTACT YOUR PRIMARY CARE PROVIDER if you experience any of the following: Fever of 100.4 or higher, shaking chills, or vomiting Worsening pain, swelling, or redness that gets worse in or around the area (particularly if the area of redness expands) Pain that gets worse in or around the infected area Trouble or pain when moving the joints above or below the infected area Difficulty following your treatment plan, or difficulty taking medications CALL 911 OR GO TO THE EMERGENCY DEPARTMENT if you experience any of the following: Severe chest pain, or chest pain that radiates (moves) to your jaw or arm Sudden, severe shortness of breath or difficulty breathing Thank you for allowing us to participate in your care. Addtl Learning Operations Specialist Provider Instructions: Surgical instructions: Daily dressing changes or as needed to keep clean and dry. If wound drainage decreases and gauze starts sticking onto wound, start daily wet to dry dressing to avoid gauze sticking to the healing tissues Monitor for increasing pain/redness/swelling/fevers Take oral antibiotics as prescribed for entire course Pending Studies at Discharge: No Stand-Alone Forms: My [facility] Skilled Items Patient informed of condition?: Yes DNR: No Discharge Level of Care: Acute rehab Communicable Disease: No Discharge Prognosis: Improving Lines: None Urinary Catheter: No Medications and DC Order Prescriptions: New acetaminophen [Tylenol Extra Strength] 500 mg Tablet 1,000 mg PO Q8 3 Days Qty: 18 0RF pantoprazole 40 mg Tablet,Delayed Release (Dr/Ec) 40 mg PO QAM 15 Days Qty: 20 0RF doxycycline monohydrate 100 mg capsule 100 mg PO BID 7 Days Qty: 14 0RF ketorolac 10 mg tablet 10 mg PO Q8H 3 Days Qty: 9 0RF doxycycline hyclate 100 mg capsule 100 mg PO BID 7 Days Qty: 14 0RF ketorolac 10 mg tablet 10 mg PO Q8H 3 Days Qty: 9 0RF pantoprazole 40 mg tablet,delayed release (DR/EC) 40 mg PO DAILY 28 Days Qty: 28 0RF acetaminophen [Acetaminophen Extra Strength] 500 mg tablet 1,000 mg PO Q8 PRN (Reason: pain) 3 Days Qty: 20 0RF Continued Coreg 1 tab PO BID Rx Instructions: PT DOES NOT KNOW DOSE Discharge Orders: Discharge Order (Routine); Ordered 12/20/24 Ordered By: Celio Ramirez Admission Data Admit Date/Time: 12/16/24 22:53 Attending Provider: Shin Aragon Admit Provider: Shin Aragon Primary Care Provider: PCP,NO Other Providers: Cristino Elmore; Flavio Jama Supervising Physician Co-Signing Physician Notes I personally examined the patient and verified all bishop points of history and exam, discussed case, and agree with decision making with Dr Ramirez overall doing better, feels up for return to [facility] vitals noted nad heent nc at mmm breathing unlabored no accessory muscles good effort skin with resolved erythema, I&D area dressed, no erythema or tenderness cellulitis w sepsis and abscess POA - s/p I&D - MRSA - doing better, continue vanco->transition to doxy at discharge. safe/stable for dc. outpt wound care being set up - and d/w pt if he departs [facility] and goes back home then would want his PCP to help him get wound care set up - which he expresses understanding/feasibility thrombocytopenia - home/PCP f/u - suspect chronic, suspect EtOH liver disease mediated. notes PCP and several specialists at home that he follows with regularly. outpt f/u for this. otherwise as above Resident Activity Tracking Resident Involvement: Resident Care Provided Care Provided: Adult Hospital Medicine
--- NOTE | 2024-12-20 17:51 | Billing Data ---
Date of Service December 20, 2024 Coding Level of Care Code 26473 IN/OBS DISCH 30 MIN/LESS
== END 2024-12-20 13:36 | disposition alcohol treatment (31) | DRG 603 ==
LOC: SUATTDRO → ED 18:03 → INTOOBSV 22:53 → EDINP 22:53 → 3W 23:40

== ENCOUNTER 2025-03-10 19:29 | Inpatient (IN) ==
--- NOTE | 2025-03-10 20:06 | Emergency Department Note ---
Impression & Plan Overdose, Thrombocytopenia, Urinary tract infection ED Provider Note NAME: TRACY GREEN AGE: 39 SEX: M : 1985 ARRIVES VIA: Ambulance INFORMANT: Patient, EMS ED PROVIDER(S): Edgar Abarca DO CHIEF COMPLAINT: Suspected overdose HPI: The patient is a 39-year-old male who is currently residing at [facility] for inpatient rehab from drug and alcohol abuse. The patient was given his Suboxone as well as Valium this morning. He was confused and obtunded. He received 2 doses of Narcan prior to coming to the emergency department. The patient at this time denies having any chest pain or difficulty breathing. He denies having any weakness in the arms or legs. He states that he feels back at his baseline at this time. He does have a history of diabetes as well as hypertension. He states that he has been compliant with his outpatient medications otherwise. ROS: See above HPI for pertinent positives & negatives. A total of 10 systems reviewed and were otherwise negative. PAST MEDICAL HISTORY: See Below PAST SURGICAL HISTORY: See Below FAMILY HISTORY: See Below SOCIAL HISTORY: See Below HOME MEDICATIONS: See Below ALLERGIES: See Below VITALS: See Below PHYSICAL EXAMINATION: GENERAL: The patient is awake to loud verbal stimuli. The patient does fall asleep easily but not verbally stimulated. EYES: The conjunctivae are clear. The pupils are minimally constricted and reactive. EARS, NOSE, MOUTH AND THROAT: The nose is without any evidence of any deformity. NECK: The neck is nontender and supple. RESPIRATORY: Normal respiratory effort is noted there is no evidence of wheezing rhonchi or rales CARDIOVASCULAR: Regular rate and rhythm noted there no murmurs rubs or gallops normal S1 normal S2. GASTROINTESTINAL: The abdomen is soft. Abdomen is nontender. SKIN: Chronic venous stasis changes were noted in both lower extremities. Skin is warm and dry. NEUROLOGIC: Patient is awake and oriented x3 strength is symmetric patellar reflexes are 2+ bilaterally MEDICAL DECISION MAKING: The patient is a 39-year-old male who presented to the emergency department for an evaluation. The patient is currently an inpatient being treated at [facility] for drug and alcohol rehab. The patient was given Valium as well as Suboxone early this morning. This evening he was found obtunded. He was treated with Narcan twice. Upon arrival to the emergency department the patient was awake and alert. He did not require supplemental oxygen. I discussed the patient's laboratory and radiographic studies with him. We did talk to [facility] and ultimately the patient was not felt to be a good candidate to be transferred back to their facility. For this reason I discussed his condition with the on-call [facility] hospitalist. Triage Nursing notes reviewed. Prior medical records reviewed Vital Signs: reviewed and remarkable for no significant abnormalities Differential diagnosis: Overdose, toxicologic, infection, hypoglycemia, electrolyte abnormalities, cardiac sources, intracerebral event, neurologic, trauma, as well as other pathologies. ER treatment provided: See below Diagnostics interpreted by me: ECG: EKG was obtained in the emergency department. My interpretation is normal sinus rhythm at 66 bpm. There is no ectopy. There was no acute ST segment abnormalities noted. QTc was 457 ms. Cardiac Monitoring: An order was placed for continuous cardiac monitoring. The monitor shows a rate of 68 bpm with sinus rhythm. Laboratory studies: As stated above and show below. Imaging studies: See below. Radiographic imaging was reviewed by myself Consultation(s): I discussed this case with Dr. Meehan who is on-call for the [facility] hospitalist group. Past Med/Surg History Problem List (Updated 03/10/25 @ 23:26 by Edgar Abarca DO) Urinary tract infection (Acute) Thrombocytopenia (Acute) Overdose (Acute) Abscess of left lower extremity (Acute) Thrombocytopenia (Acute) Hypertension Type 2 diabetes mellitus (Acute) GERD (gastroesophageal reflux disease) Cellulitis of left lower extremity (Acute) Medical History Alcohol use disorder Social History Smoking Status: Former smoker Tobacco Type: E-cigarettes / Vaping Second Hand Exposure: No; Do You Dip or Chew Tobacco: No; Hx Alcohol Use: Yes Hx Substance Use: No Preferred Language: Eritrean Communication Ability: Effective 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 Feels Safe at Home: Yes Assistive Devices: None Allergies Allergies Allergy/AdvReac Type Severity Reaction Status Date / Time No Known Allergies Allergy Verified 03/10/25 21:04 Home Meds Home Medications Medication Instructions Recorded Confirmed carvedilol 3.125 mg tablet (Coreg) 3.125 mg PO BID 12/26/24 03/10/25 bupropion HCl 150 mg tablet,12 hr 150 mg PO BID 01/19/25 03/10/25 sustained-release fluoxetine 20 mg capsule 20 mg PO QAM 01/19/25 03/10/25 fluoxetine 40 mg capsule 40 mg PO QAM 01/19/25 03/10/25 hydrochlorothiazide 25 mg tablet 25 mg PO QAM 01/19/25 03/10/25 hydroxyzine pamoate 50 mg capsule 50 mg PO TID PRN ANXIETY/SLEEP 01/19/25 03/10/25 ibuprofen 800 mg tablet 800 mg PO TID PRN Pain 01/19/25 03/10/25 nicotine (polacrilex) 4 mg gum 4 mg PO DIRECTED PRN SMOKING 01/19/25 03/10/25 URGES pantoprazole 40 mg tablet,delayed 40 mg PO QAM 01/19/25 03/10/25 release buprenorphine 2 mg-naloxone 0.5 mg 0 tab sublingual DIRECTED 03/10/25 03/10/25 sublingual tablet clonidine HCl 0.1 mg tablet 0.1 mg PO TID PRN NEEDED 03/10/25 03/10/25 furosemide 40 mg tablet (Lasix) 40 mg PO DAILY 03/10/25 03/10/25 metronidazole 500 mg tablet 500 mg PO TID 03/10/25 03/10/25 trazodone 50 mg tablet 50 mg PO HS 03/10/25 03/10/25 Results & Data (ED) Vital Signs Vital Signs - 24 hr 03/10/25 19:33 03/10/25 19:39 03/10/25 19:39 Pulse Rate 71 66 Pulse Rate [Right Finger] 66 Pulse Rhythm Regular Pulse Rhythm [Right Finger] Regular Pulse Strength Normal Pulse Strength [Right Finger] Normal Respiratory Rate 16 16 Respiratory Effort / Characteristics Non-Labored Non-Labored Respiratory Depth Normal Normal Respiratory Pattern Regular Regular Blood Pressure 154/87 H Blood Pressure [Right Arm] 154/87 H Blood Pressure Mean 109 Blood Pressure Mean [Right Arm] 109 Blood Pressure Position Lying Blood Pressure Position [Right Arm] Lying Pulse Oximetry 97 97 Oxygen Delivery Method Room Air Room Air Sepsis Recent Fever Within 48 Hours No Sepsis New/Unexplained Change in Mental Status N/A Sepsis Action Taken by Nursing No Action Required 03/10/25 19:50 03/10/25 21:19 03/10/25 23:26 Pulse Rate Pulse Rate [Right Finger] 82 80 Pulse Rhythm Pulse Rhythm [Right Finger] Regular Regular Pulse Strength Pulse Strength [Right Finger] Normal Normal Respiratory Rate Respiratory Effort / Characteristics Respiratory Depth Respiratory Pattern Blood Pressure Blood Pressure [Right Arm] 119/75 98/59 L Blood Pressure Mean Blood Pressure Mean [Right Arm] 89 72 Blood Pressure Position Blood Pressure Position [Right Arm] Lying Pulse Oximetry 97 97 94 Oxygen Delivery Method Room Air Room Air Room Air Sepsis Recent Fever Within 48 Hours Sepsis New/Unexplained Change in Mental Status Sepsis Action Taken by Nursing 03/10/25 23:27 Pulse Rate 74 Pulse Rate [Right Finger] Pulse Rhythm Pulse Rhythm [Right Finger] Pulse Strength Pulse Strength [Right Finger] Respiratory Rate Respiratory Effort / Characteristics Respiratory Depth Respiratory Pattern Blood Pressure Blood Pressure [Right Arm] Blood Pressure Mean Blood Pressure Mean [Right Arm] Blood Pressure Position Blood Pressure Position [Right Arm] Pulse Oximetry Oxygen Delivery Method Sepsis Recent Fever Within 48 Hours Sepsis New/Unexplained Change in Mental Status Sepsis Action Taken by Usp Medications Current Medication List: was personally reviewed by me Laboratory Data Attestation: I reviewed the patient's lab results. 03/10/25 20:21 03/10/25 20:21 Lab Results 03/10/25 03/10/25 Range/Units 20:21 20:38 WBC 4.09 L (4.8-10.8) K/ul RBC 3.54 L (4.70-6.10) M/uL Hgb 11.2 L (14.0-18.0) g/dl Hct 32.2 L (42.0-52.0) % MCV 91.0 (80.0-100.0) fL MCH 31.6 (25.0-34.0) pg MCHC 34.8 (32.0-36.0) g/dL RDW Std Deviation 46.7 H (36.4-46.3) fL RDW Coeff of Katelyn 14.0 (11.5-14.5) % Plt Count 59 L (130-400) K/uL MPV 11.2 (9.4-12.4) fL Immature Gran % (Auto) 0.2 % Neut % (Auto) 71.5 % Lymph % (Auto) 12.5 % [place] % (Auto) 13.2 % Eos % (Auto) 2.4 % Baso % (Auto) 0.2 % Neut # (Auto) 2.92 (1.40-6.50) K/uL Lymph # (Auto) 0.51 L (1.20-3.40) K/uL [place] # (Auto) 0.54 (0.11-0.59) K/uL Eos # (Auto) 0.10 (0.00-0.50) K/uL Baso # (Auto) 0.01 (0.00-0.20) K/uL Immature Gran # (Auto) 0.01 (0.01-0.20) K/uL VBG pH 7.43 H (7.36-7.41) VBG pCO2 36 L (38-50) mmHg VBG pO2 110 mmHg VBG HCO3 24 mmol/L VBG O2 Saturation 98.9 % VBG Base Excess -0.1 mEq/L Sodium 140 (136-145) mmol/L Potassium 3.8 (3.5-5.1) mmol/L Chloride 112 H (98-107) mmol/L Carbon Dioxide 22 (21-32) mmol/L Anion Gap 6 (3-11) BUN 19 (6-23) mg/dl Creatinine 0.78 (0.6-1.4) mg/dl Est Cr Clr Drug Dosing 149.8 ml/min eGFR 114.90 BUN/Creatinine Ratio 24.4 H (10-20) Glucose 111 H (70-99(Fasting)) mg/dl Calcium 7.5 L (8.6-10.3) mg/dl Magnesium 1.7 (1.7-2.4) mg/dl Total Bilirubin 1.5 H (0.2-1.0) mg/dl AST 43 H (13-39) U/L ALT 27 (7-52) U/L Alkaline Phosphatase 76 (34-104) U/L Troponin I High Sens 3.5 (0-20) pg/ml Total Protein 6.0 (6.0-8.3) gm/dl Albumin 2.7 L (3.4-5.0) gm/dl Globulin 3.3 (2.5-4.0) gm/dl Albumin/Globulin Ratio 0.8 L (0.9-2) Lipase 46 (11-82) U/L Urine Color Dark Yellow Urine Appearance Clear (Clear) Urine pH 6.0 (4.5-7.5) Ur Specific [place] 1.028 (1.000-1.030) Urine Protein Trace H (Negative) Urine Glucose (UA) Negative (Negative) Urine Ketones Trace H (Negative) Urine Blood Negative (Negative) Urine Nitrite Negative (Negative) Urine Bilirubin 1+ H (Negative) Urine Urobilinogen Positive H (Negative) Ur Leukocyte Esterase 1+ H (Negative) Urine WBC (Auto) 21-50 H (0-5) /hpf Urine RBC (Auto) 3-5 H (0-2) /hpf U Hyaline Cast (Auto) 0-2 (0-2) /lpf U Epithel Cells (Auto) 0-2 (0-2) /hpf Urine Bacteria (Auto) None Seen (None Seen) Urine Comment Salicylates < 3.0 L (3.0-30) mg/dl Urine Opiates Screen Neg (Neg) Ur Methadone, Qual Neg (Neg) Urine Fentanyl Screen Neg (Neg) Acetaminophen < 3 L (10-30) ug/ml Urine Barbiturates Neg (Neg) Ur Phencyclidine (PCP) Neg (Neg) U Amphetamin/Meth Scrn Neg (Neg) MDMA (Ecstasy) Screen Pos H (Neg) U Benzodiazepines Scrn Pos H (Neg) Ur Cocaine Metabolite Pos H (Neg) U Marijuana (THC) Screen Neg (Neg) Ethyl Alcohol mg/dL < 10.0 (<10.0) mg/dl Administered Medications Discontinued Medications Ceftriaxone Sodium (Rocephin) 2,000 mg in 50 mls @ 100 mls/hr IV NOW STA Stop: 03/10/25 23:55 Last Infusion: 03/10/25 23:55 Dose: Infused Documented By: Admin: 03/10/25 23:31 Dose: 100 mls/hr Documented By: DANIAL Imaging Data Attestation: I personally reviewed and interpreted this imaging study as follows: My Impression: 1 view chest x-ray was obtained in the emergency department. My interpretation is no free air or definite infiltrate, final report below. Radiologist's Impression: Chest X-Ray 03/10/25 19:49 Exam(s): XR CXR 1 VIEW EXAM: XR Chest, 1 View CLINICAL HISTORY: Reason for exam: od. TECHNIQUE: Frontal view of the chest. COMPARISON: No relevant prior studies available. FINDINGS: Lungs: Left basilar opacity potentially aspiration or atelectasis. Pleural space: No pleural effusion. No pneumothorax. Heart: Unremarkable. No cardiomegaly. IMPRESSION: Left basilar opacity potentially aspiration or atelectasis. Electronically signed by: Brady Long MD 03/10/25 22:50 PM Discharge Plan Visit Data Chief Complaint: Overdose (Accidental) Stated Complaint: OVERDOSE ED Provider: Edgar Abarca Discharge Problem: Overdose, Thrombocytopenia, Urinary tract infection Patient Disposition: Being Evaluated by Hospitalist Condition: Fair Forms Stand Alone Forms: My [facility] Prescriptions Prescriptions: No Action carvedilol [Coreg] 3.125 mg tablet 3.125 mg PO BID Rx Instructions: must administer with a meal/food furosemide [Lasix] 40 mg Tablet 40 mg PO DAILY clonidine HCl 0.1 mg tablet 0.1 mg PO TID PRN (Reason: NEEDED) trazodone 50 mg tablet 50 mg PO HS metronidazole 500 mg tablet 500 mg PO TID Rx Instructions: ORDERED 03/09/25 FOR 7 DAYS buprenorphine-naloxone 2-0.5 mg tablet, sublingual 0 tab SUBLINGUAL DIRECTED fluoxetine 40 mg capsule 40 mg PO QAM Rx Instructions: TOTAL DOSE 60 MG--TAKES WITH 20 MG CAP. bupropion HCl 150 mg tablet sustained-release 12 hr 150 mg PO BID ibuprofen 800 mg tablet 800 mg PO TID PRN (Reason: Pain) hydroxyzine pamoate 50 mg capsule 50 mg PO TID PRN (Reason: ANXIETY/SLEEP) nicotine (polacrilex) 4 mg gum 4 mg PO DIRECTED PRN (Reason: SMOKING URGES) pantoprazole 40 mg tablet,delayed release (DR/EC) 40 mg PO QAM hydrochlorothiazide 25 mg tablet 25 mg PO QAM fluoxetine 20 mg capsule 20 mg PO QAM Rx Instructions: TOTAL DOSE 60 MG--TAKES WITH 40 MG CAP. Referrals Referrals: PCP,NO [Primary Care Provider] -
[2025-03-10 20:34] LABS: Basophils # (auto) 0.01 K/uL (0.00-0.20); Basophils % (auto) 0.2 %; Eosinophils % (auto) 2.4 %; Hematocrit (blood only) 32.2 % (42.0-52.0); Hemoglobin 11.2 g/dl (14.0-18.0); Immature Granulocytes # (auto) 0.01 K/uL (0.01-0.20); Immature Granulocytes % (auto) 0.2 %; Lymphocytes # (auto) 0.51 K/uL (1.20-3.40); Lymphocytes % (auto) 12.5 %; Mean Corpuscular Hemoglobin 31.6 pg (25.0-34.0); Mean Corpuscular Hgb Conc 34.8 g/dL (32.0-36.0); Mean Platelet Volume 11.2 fL (9.4-12.4); Monocytes # (auto) 0.54 K/uL (0.11-0.59); Monocytes % (auto) 13.2 %; Neutrophils # (auto) 2.92 K/uL (1.40-6.50); Neutrophils % (auto) 71.5 %; Platelet Count 59 K/uL (130-400); RDW Standard Deviation 46.7 fL (36.4-46.3); Red Blood Count 3.54 M/uL (4.70-6.10); White Blood Count 4.09 K/ul (4.8-10.8)
[2025-03-10 20:43] LABS: Base Excess VBG -0.1 mEq/L; HCO3 VBG 24 mmol/L; Oxygen Saturation VBG 98.9 %; PCO2 VBG 36 mmHg (38-50); PO2 VBG 110 mmHg; pH VBG 7.43 (7.36-7.41)
[2025-03-10 21:03] LABS: Appearance Urine Clear (Clear); Bacteria Urine Automated None Seen (None Seen); Bilirubin Urine 1+ (Negative); Blood Urine Negative (Negative); Cast Urine Automated 0-2 /lpf (0-2); Color Urine Dark Yellow; Epithelial Cell Urine Auto 0-2 /hpf (0-2); Glucose Urine UA Negative (Negative); Ketones Urine Trace (Negative); Leukocyte Esterase Urine 1+ (Negative); Nitrite Urine Negative (Negative); Protein Urine Trace (Negative); Specific Gravity Urine 1.028 (1.000-1.030); Urobilinogen Urine Positive (Negative); WBC Urine Automated 21-50 /hpf (0-5)
[2025-03-10 21:05] LABS: Albumin Globulin Ratio 0.8 (0.9-2); Albumin Level 2.7 gm/dl (3.4-5.0); BUN Creatinine Ratio 24.4 (10-20); Bilirubin,Total 1.5 mg/dl (0.2-1.0); Calcium 7.5 mg/dl (8.6-10.3); Creatinine Clr Calc Pharmacy 149.8 ml/min; Globulin 3.3 gm/dl (2.5-4.0); Magnesium 1.7 mg/dl (1.7-2.4); Potassium 3.8 mmol/L (3.5-5.1)
[2025-03-10 21:11] LABS: Troponin I High Sensitivity 3.5 pg/ml (0-20)
[2025-03-10 21:32] LABS: Acetaminophen < 3 ug/ml (10-30); Salicylate < 3.0 mg/dl (3.0-30)
[2025-03-10 21:57] LABS: Amphetamines+Metham, Urine Neg (Neg); Barbiturates, Urine Neg (Neg); Benzodiazepine, Urine Pos (Neg); Cocaine, Urine Pos (Neg); Fentanyl, Urine Neg (Neg); MDMA (Ecstacy), Urine Pos (Neg); Marijuana, Urine Neg (Neg); Methadone, Urine Neg (Neg); Opiate, Urine Neg (Neg); Phencyclidine, Urine Neg (Neg)
--- NOTE | 2025-03-10 22:51 | XRay Report ---
Exam(s): XR CXR 1 VIEW EXAM: XR Chest, 1 View CLINICAL HISTORY: Reason for exam: od. TECHNIQUE: Frontal view of the chest. COMPARISON: No relevant prior studies available. FINDINGS: Lungs: Left basilar opacity potentially aspiration or atelectasis. Pleural space: No pleural effusion. No pneumothorax. Heart: Unremarkable. No cardiomegaly. IMPRESSION: Left basilar opacity potentially aspiration or atelectasis. Electronically signed by: Brady Long MD 03/10/25 22:50 PM
--- NOTE | 2025-03-10 23:16 | History & Physical Report ---
Date of Service March 10, 2025 Assessment & Plan (1) GERD (gastroesophageal reflux disease): (2) Overdose: (3) Alcohol abuse: (4) Opiate abuse, continuous: Plan 39 year old male presents to the ER with suspected overdose #Suspected overdose On diazepam and Suboxone at [facility], last took in the morning 03/10, improved with naloxone x2, additional doses for respiratory rate < 8 Hold sedating medications End tidal CO2 monitoring Telemetry monitoring #Opiate abuse Consider restarting Suboxone pending clinical course #Alcohol abuse No current signs of withdrawal, hold benzodiazepines for now given sedation Thiamine + folate #Suspected depression/anxiety Continue bupropion and fluoxetine #GERD Continue pantoprazole VTE Prophylaxis - low risk Diet - regular Disposition - admit to PCU Admission and Anticipated Discharge Date Admission Date: March 10, 2025 History of Present Illness Chief Complaint: Overdose Primary Care Provider: NO PCP Eliel Conti is a 39 year old male who presents to the ER with [facility] rehabilitation with concern for overdose. When asked why he is in the emergency room and what happened he tells me "nothing really" and able to tell me he isn't in pain but unable to answer any further questions including last alcohol drink or recollection of events. Reportedly at [facility] for alcohol and opiate abuse and given 5mg diazepam and Suboxone this morning around 5am. He was in an unresponsive state this afternoon and EMS were called. He was given x2 doses of Narcan prior to arrival and reportedly much more alert on arrival to the ER. Allergies Allergy/AdvReac Type Severity Reaction Status Date / Time No Known Allergies Allergy Verified 03/10/25 21:04 Home Medications Medication Instructions Recorded Confirmed Type carvedilol 3.125 mg tablet (Coreg) 3.125 mg PO BID 12/26/24 03/10/25 History bupropion HCl 150 mg tablet,12 hr 150 mg PO BID 01/19/25 03/10/25 History sustained-release fluoxetine 20 mg capsule 20 mg PO QAM 01/19/25 03/10/25 History fluoxetine 40 mg capsule 40 mg PO QAM 01/19/25 03/10/25 History hydrochlorothiazide 25 mg tablet 25 mg PO QAM 01/19/25 03/10/25 History hydroxyzine pamoate 50 mg capsule 50 mg PO TID PRN ANXIETY/SLEEP 01/19/25 03/10/25 History ibuprofen 800 mg tablet 800 mg PO TID PRN Pain 01/19/25 03/10/25 History nicotine (polacrilex) 4 mg gum 4 mg PO DIRECTED PRN SMOKING 01/19/25 03/10/25 History URGES pantoprazole 40 mg tablet,delayed 40 mg PO QAM 01/19/25 03/10/25 History release buprenorphine 2 mg-naloxone 0.5 mg 0 tab sublingual DIRECTED 03/10/25 03/10/25 History sublingual tablet clonidine HCl 0.1 mg tablet 0.1 mg PO TID PRN NEEDED 03/10/25 03/10/25 History furosemide 40 mg tablet (Lasix) 40 mg PO DAILY 03/10/25 03/10/25 History metronidazole 500 mg tablet 500 mg PO TID 03/10/25 03/10/25 History trazodone 50 mg tablet 50 mg PO HS 03/10/25 03/10/25 History Past Med/Surg History Problem List (Updated 03/11/25 @ 04:44 by Tom Meehan MD) Opiate abuse, continuous Alcohol abuse Urinary tract infection (Acute) Thrombocytopenia (Acute) Overdose (Acute) Thrombocytopenia (Acute) Hypertension Type 2 diabetes mellitus (Acute) GERD (gastroesophageal reflux disease) Medical History (Updated 03/11/25 @ 04:44 by Tom Meehan MD) Cellulitis of left lower extremity Abscess of left lower extremity Alcohol use disorder Social History Smoking Status: Former smoker Tobacco Type: E-cigarettes / Vaping Second Hand Exposure: No; Do You Dip or Chew Tobacco: No; Hx Alcohol Use: Yes Hx Substance Use: No Preferred Language: Occitan Communication Ability: Effective 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 Feels Safe at Home: Yes Assistive Devices: None Review of Systems Review of Systems: All systems reviewed & are unremarkable except as noted in HPI & below Physical Exam Constitutional: WD/WN, vitals as above ENMT: external ear and nose normal, oropharynx normal Respiratory: normal respiratory effort, lungs clear to auscultation Cardiovascular: RRR, no murmur, no edema Gastrointestinal (Abdomen): normal bowel sounds, soft, nontender, no hepatosplenomegaly Skin: no rashes, warm and dry Neurologic: moves all extremities, awake and + confused Psychiatric: Orientation: alert; + not oriented x 3 Results & Data Results & Data Vital Signs (Past 12 Hours) Vital Signs Pulse Pulse Resp BP BP Pulse Ox O2 Del Method 03/10/25 21:19 82 119/75 97 Room Air 03/10/25 19:50 97 Room Air 03/10/25 19:39 66 16 154/87 H 97 Room Air 03/10/25 19:39 66 16 154/87 H 97 Room Air 03/10/25 19:33 71 Laboratory Results Abnormal lab results 03/10/25 03/10/25 Range/Units 20:21 20:38 WBC 4.09 L (4.8-10.8) K/ul RBC 3.54 L (4.70-6.10) M/uL Hgb 11.2 L (14.0-18.0) g/dl Hct 32.2 L (42.0-52.0) % RDW Std Deviation 46.7 H (36.4-46.3) fL Plt Count 59 L (130-400) K/uL Lymph # (Auto) 0.51 L (1.20-3.40) K/uL VBG pH 7.43 H (7.36-7.41) VBG pCO2 36 L (38-50) mmHg Chloride 112 H (98-107) mmol/L BUN/Creatinine Ratio 24.4 H (10-20) Glucose 111 H (70-99(Fasting)) mg/dl Calcium 7.5 L (8.6-10.3) mg/dl Total Bilirubin 1.5 H (0.2-1.0) mg/dl AST 43 H (13-39) U/L Albumin 2.7 L (3.4-5.0) gm/dl Albumin/Globulin Ratio 0.8 L (0.9-2) Urine Protein Trace H (Negative) Urine Ketones Trace H (Negative) Urine Bilirubin 1+ H (Negative) Urine Urobilinogen Positive H (Negative) Ur Leukocyte Esterase 1+ H (Negative) Urine WBC (Auto) 21-50 H (0-5) /hpf Urine RBC (Auto) 3-5 H (0-2) /hpf Salicylates < 3.0 L (3.0-30) mg/dl Acetaminophen < 3 L (10-30) ug/ml MDMA (Ecstasy) Screen Pos H (Neg) U Benzodiazepines Scrn Pos H (Neg) Ur Cocaine Metabolite Pos H (Neg) Diagnostic Findings XR CXR 1 VIEW EXAM: XR Chest, 1 View CLINICAL HISTORY: Reason for exam: od. TECHNIQUE: Frontal view of the chest. COMPARISON: No relevant prior studies available. FINDINGS: Lungs: Left basilar opacity potentially aspiration or atelectasis. Pleural space: No pleural effusion. No pneumothorax. Heart: Unremarkable. No cardiomegaly. IMPRESSION: Left basilar opacity potentially aspiration or atelectasis. Medications Administered ER Medications Given: Ceftriaxone 2000mg IV ECG Rate (beats per minute): 66 Rhythm: normal sinus and other (accelerated junctional rhythm) Findings: no acute ischemic change Comparison ECG Date: no prior available Code Status & VTE Plan Code Status Full PG Care Time/CCT Total # of Minutes Spent Total Time Spent with Patient: Total time spent is greater than 50% in coordination of care (as documented) at patient's floor/unit and/or counseling patient: Coding Level of Care Code 32401 INT INP/OBS CARE 3/75MIN Diagnoses GERD (gastroesophageal reflux disease) K21.9 Overdose T50.901A Alcohol abuse F10.10 Opiate abuse, continuous F11.10
[2025-03-10] MEDS: cefTRIAXone SODIUM 2,000 MG/50 ML BAG IV STA (23:31)
[2025-03-11] MEDS ORDERED: NALOXONE HCL 0.4 MG/1 ML VIAL/CARP IV PRN (02:35)
[2025-03-11 07:20] LABS: Base Excess VBG 1.2 mEq/L; HCO3 VBG 27 mmol/L; Oxygen Saturation VBG 90.2 %; PCO2 VBG 44 mmHg (38-50); PO2 VBG 60 mmHg; pH VBG 7.39 (7.36-7.41)
[2025-03-11 07:51] LABS: Albumin Globulin Ratio 0.9 (0.9-2); Albumin Level 2.7 gm/dl (3.4-5.0); BUN Creatinine Ratio 22.8 (10-20); Bilirubin,Total 1.1 mg/dl (0.2-1.0); Calcium 7.5 mg/dl (8.6-10.3); Creatinine Clr Calc Pharmacy 144.8 ml/min; Globulin 3.1 gm/dl (2.5-4.0); Potassium 3.4 mmol/L (3.5-5.1); Total Protein 5.8 gm/dl (6.0-8.3)
[2025-03-11] MEDS: THIAMINE HCL 100 MG TAB PO SCH (08:41)
[2025-03-11] MEDS: buPROPion SR 150 MG TABCR PO SCH (08:41)
[2025-03-11] MEDS: FLUoxetine HCL 20 MG CAP PO SCH (08:41)
[2025-03-11] MEDS: PANTOprazole 40 MG TAB PO SCH (08:41)
[2025-03-11] MEDS ORDERED: FLUoxetine HCL 20 MG CAP PO SCH (09:00)
--- NOTE | 2025-03-11 10:04 | Hospitalist Progress Note ---
Date of Service March 11, 2025 Assessment & Plan (1) Overdose: Plan: -pt had [facility] rehab -on valium and suboxone -s/p narcan -appears back to baseline -pt requesting return back to [facility] rehab -case mangers notified -pt medical stable for return (2) GERD (gastroesophageal reflux disease): Plan: -protonix (3) Alcohol abuse: Plan: -no current withdrawal -benzo's held 2nd to recent OD (4) Opiate abuse, continuous: Plan: -pt on suboxone, held 2nd to OD -will restart in next 24hrs Plan 39 year old male presents to the ER with suspected overdose Admission and Anticipated Discharge Date Admission Date: March 10, 2025 Subjective No events overnight. Pt awake and responsive this am. Review of Systems Review of Systems: CONST: Negative for fever, body aches and chills. HENT: Negative for neck pain/stiffness, headache, congestion, sore throat, swelling. EYES: Negative for discharge/pain or vision changes. RESP: Negative for cough/hemoptysis and shortness of breath. CV: Negative chest pain, difficulty breathing, palpitations. ABD: Negative pain, nausea, vomiting. : Negative increase frequency, dysuria, blood in urine or stool. MUSC: Negative for muscle aches, edema. SKIN: Negative rash, lesions/sores. NEURO: Negative headache, dizziness, weakness. Physical Exam Physical Exam: GENERAL APPEARANCE NAD, activity normal for age, well developed/ well nourished, no cyanosis, pallor, or diaphoresis. EYES lids/conjunctiva normal. EARS/NOSE/THROAT Mucous membranes moist, nares normal, lips/teeth normal uvula midline without oral pharyngeal erythema, exudate or swelling TMs normal bilaterally. No lymphangitis/lymphedema. HEAD/NECK normocephalic atraumatic, no facial trauma, neck is supple. RESPIRATORY respiratory effort normal, speaks in full sentences, no tripod position, no accessory muscle use. Lungs clear to auscultation without rhonchi, wheezes, rales CARDIAC Regular rate and rhythm, no edema. ABDOMINAL Soft, ND/NT. No evidence of fluid wave. No pulsatile masses on exam, rebound tenderness, Bess sign or pain over Mcburney's point. MUSCLES/EXTREMITIES No abnormal range of motion, no swelling. SKIN Warm, pink and dry. No rashes, dermatoses, petechiae or lesions. NEUROLOGICAL Speech is clear and appropriate. Normal level of consciousness. Gait and coordination are normal. 5/5 strength in all extremities. PSYCH Normal mood and affect. Judgement/competence is appropriate Results & Data Results & Data Vital Signs (Past 12 Hours) Vital Signs Temp Pulse Pulse Resp BP BP Pulse Ox 03/11/25 07:26 36.5 C 62 18 114/68 95 03/11/25 07:00 62 03/11/25 04:27 36.9 C 18 L 18 129/76 96 03/11/25 03:30 73 18 102/61 94 03/11/25 02:38 03/11/25 02:38 75 93/59 L 92 03/11/25 01:01 70 96/58 L 92 03/10/25 23:27 74 03/10/25 23:26 80 98/59 L 94 Pulse Ox O2 Del Method O2 Del Method 03/11/25 07:26 Room Air 03/11/25 07:00 03/11/25 04:27 Room Air 03/11/25 03:30 03/11/25 02:38 92 Room Air 03/11/25 02:38 Room Air 03/11/25 01:01 Room Air 03/10/25 23:27 03/10/25 23:26 Room Air PG Care Time/CCT Total # of Minutes Spent Total Time Spent with Patient: Total time spent is greater than 50% in coordination of care (as documented) at patient's floor/unit and/or counseling patient: Coding Level of Care Code 76112 SUB INP/OBS CARE 2/35MIN Diagnoses Overdose T50.901A GERD (gastroesophageal reflux disease) K21.9 Alcohol abuse F10.10 Opiate abuse, continuous F11.10
--- NOTE | 2025-03-11 13:12 | Electrocardiogram Report ---
Test Reason : Blood Pressure : */* mmHG Vent. Rate : 66 BPM Atrial Rate : * BPM P-R Int : * ms QRS Dur : 92 ms QT Int : 436 ms P-R-T Axes : * 41 56 degrees QTcB Int : 457 ms Normal sinus rhythm Minimal voltage criteria for LVH, may be normal variant Poor R wave progression, consider anterior NV vs. lead placement vs. LVH Abnormal ECG No previous ECGs available Confirmed by Edgar Cedillo ([id number]) on 03/11/2025 1:12:19 PM Referred By: REFERRED SELF Confirmed By: Edgar Cedillo
[2025-03-11] MEDS ORDERED: diazePAM 5 MG/ML 10ML VIAL IV PRN ×2 (17:14→17:16)
[2025-03-12 08:15] LABS: Hematocrit (blood only) 36.4 % (42.0-52.0); Hemoglobin 12.3 g/dl (14.0-18.0); Mean Corpuscular Hemoglobin 30.5 pg (25.0-34.0); Mean Corpuscular Hgb Conc 33.8 g/dL (32.0-36.0); Mean Corpuscular Volume 90.3 fL (80.0-100.0); Mean Platelet Volume 11.4 fL (9.4-12.4); Platelet Count 52 K/uL (130-400); RDW Coefficient of Variation 14.2 % (11.5-14.5); RDW Standard Deviation 46.5 fL (36.4-46.3); Red Blood Count 4.03 M/uL (4.70-6.10); White Blood Count 2.93 K/ul (4.8-10.8)
[2025-03-12 08:34] LABS: BUN Creatinine Ratio 17.6 (10-20); Creatinine Clr Calc Pharmacy 134.6 ml/min; Potassium 3.8 mmol/L (3.5-5.1)
[2025-03-12] MEDS ORDERED: NICOTINE POLACRILEX 2 MG GUM MT PRN (09:20)
--- NOTE | 2025-03-12 09:20 | Hospitalist Progress Note ---
Date of Service March 12, 2025 Assessment & Plan (1) Overdose: Plan: -pt had [facility] rehab -s/p narcan -appears back to baseline -pt requesting return back to [facility] rehab -case mangers notified -pt medical stable for return -vailum and suboxone restarted (2) GERD (gastroesophageal reflux disease): Plan: -protonix (3) Alcohol abuse: Plan: -no current withdrawal -benzo's held 2nd to recent OD (4) Opiate abuse, continuous: Plan: -pt on suboxone, restarted Plan 39 year old male presents to the ER with suspected overdose Admission and Anticipated Discharge Date Admission Date: March 10, 2025 Subjective Pt had episodes of acute confusion yesterday afternoon. Appears calm this am, answering questions appropriately Review of Systems Review of Systems: CONST: Negative for fever, body aches and chills. HENT: Negative for neck pain/stiffness, headache, congestion, sore throat, swelling. EYES: Negative for discharge/pain or vision changes. RESP: Negative for cough/hemoptysis and shortness of breath. CV: Negative chest pain, difficulty breathing, palpitations. ABD: Negative pain, nausea, vomiting. : Negative increase frequency, dysuria, blood in urine or stool. MUSC: Negative for muscle aches, edema. SKIN: Negative rash, lesions/sores. NEURO: Negative headache, dizziness, weakness. Physical Exam Physical Exam: GENERAL APPEARANCE NAD, activity normal for age, well developed/ well nourished, no cyanosis, pallor, or diaphoresis. EYES lids/conjunctiva normal. EARS/NOSE/THROAT Mucous membranes moist, nares normal, lips/teeth normal uvula midline without oral pharyngeal erythema, exudate or swelling TMs normal bilaterally. No lymphangitis/lymphedema. HEAD/NECK normocephalic atraumatic, no facial trauma, neck is supple. RESPIRATORY respiratory effort normal, speaks in full sentences, no tripod position, no accessory muscle use. Lungs clear to auscultation without rhonchi, wheezes, rales CARDIAC Regular rate and rhythm, no edema. ABDOMINAL Soft, ND/NT. No evidence of fluid wave. No pulsatile masses on exam, rebound tenderness, Bess sign or pain over Mcburney's point. MUSCLES/EXTREMITIES No abnormal range of motion, no swelling. SKIN Warm, pink and dry. No rashes, dermatoses, petechiae or lesions. NEUROLOGICAL Speech is clear and appropriate. Normal level of consciousness. Gait and coordination are normal. 5/5 strength in all extremities. PSYCH Normal mood and affect. Judgement/competence is appropriate Results & Data Results & Data Vital Signs (Past 12 Hours) Vital Signs Temp Pulse Pulse Resp BP Pulse Ox O2 Del Method 03/12/25 07:25 36.7 C 64 20 143/78 H 97 Room Air 03/12/25 07:06 80 03/12/25 04:00 36.6 C 61 16 147/74 H 98 Room Air 03/11/25 23:00 36.5 C 61 16 145/81 H 94 Room Air 03/11/25 21:39 63 PG Care Time/CCT Total # of Minutes Spent Total Time Spent with Patient: Total time spent is greater than 50% in coordination of care (as documented) at patient's floor/unit and/or counseling patient: Coding Level of Care Code 56912 SUB INP/OBS CARE 2/35MIN Diagnoses Overdose T50.901A GERD (gastroesophageal reflux disease) K21.9 Alcohol abuse F10.10 Opiate abuse, continuous F11.10
[2025-03-12] MEDS: BUPRENORPHINE/NALOXONE 2/0.5MG TAB SL SCH (10:33)
[2025-03-12] MEDS: carvediloL 3.125 MG TAB PO SCH (10:33)
--- NOTE | 2025-03-12 11:52 | Discharge Summary ---
Discharge Summary Date of Service March 12, 2025 Principal Dx & Hospital Course #1 = Principal Diagnosis (1) Overdose: -pt had [facility] rehab -s/p narcan -appears back to baseline -pt requesting return back to [facility] rehab -case mangers notified -pt medical stable for return -vailum and suboxone restarted (2) GERD (gastroesophageal reflux disease): -protonix (3) Alcohol abuse: -no current withdrawal -benzo's held 2nd to recent OD (4) Opiate abuse, continuous: -pt on suboxone, restarted Plan 39 year old male presents to the ER with suspected overdose Admission HPI Per Admitting Provider Eliel Conti is a 39 year old male who presents to the ER with [facility] rehabilitation with concern for overdose. When asked why he is in the emergency room and what happened he tells me "nothing really" and able to tell me he isn't in pain but unable to answer any further questions including last alcohol drink or recollection of events. Reportedly at [facility] for alcohol and opiate abuse and given 5mg diazepam and Suboxone this morning around 5am. He was in an unresponsive state this afternoon and EMS were called. He was given x2 doses of Narcan prior to arrival and reportedly much more alert on arrival to the ER. Discharge Exam GENERAL APPEARANCE NAD, activity normal for age, well developed/ well nourished, no cyanosis, pallor, or diaphoresis. EYES lids/conjunctiva normal. EARS/NOSE/THROAT Mucous membranes moist, nares normal, lips/teeth normal uvula midline without oral pharyngeal erythema, exudate or swelling TMs normal bilaterally. No lymphangitis/lymphedema. HEAD/NECK normocephalic atraumatic, no facial trauma, neck is supple. RESPIRATORY respiratory effort normal, speaks in full sentences, no tripod position, no accessory muscle use. Lungs clear to auscultation without rhonchi, wheezes, rales CARDIAC Regular rate and rhythm, no edema. ABDOMINAL Soft, ND/NT. No evidence of fluid wave. No pulsatile masses on exam, rebound tenderness, Bess sign or pain over Mcburney's point. MUSCLES/EXTREMITIES No abnormal range of motion, no swelling. SKIN Warm, pink and dry. No rashes, dermatoses, petechiae or lesions. NEUROLOGICAL Speech is clear and appropriate. Normal level of consciousness. Gait and coordination are normal. 5/5 strength in all extremities. PSYCH Normal mood and affect. Judgement/competence is appropriate Discharge Plan Discharge Items Patient Disposition: Drug & Alcohol Rehab Reason For Visit: OPIATE OVERDOSE Discharge Diagnosis: opiate overdose Condition on Discharge: Fair Activity: Resume your previous activity Non-emergency contact: Primary Care Provider Call non-emergency contact if: you have any medication questions Follow-up/Referrals: PCP,NO [Primary Care Provider] - Diet: Regular Addtl Attending Provider Instructions: Follow up with PMD in 2 weeks Pending Studies at Discharge: No Stand-Alone Forms: My [facility] Skilled Items Patient informed of condition?: Yes DNR: No Discharge Level of Care: Other Communicable Disease: No Discharge Prognosis: Stable Lines: None Urinary Catheter: No Medications and DC Order Prescriptions: Continued carvedilol [Coreg] 3.125 mg tablet 3.125 mg PO BID Rx Instructions: must administer with a meal/food furosemide [Lasix] 40 mg Tablet 40 mg PO DAILY clonidine HCl 0.1 mg tablet 0.1 mg PO TID PRN (Reason: NEEDED) trazodone 50 mg tablet 50 mg PO HS metronidazole 500 mg tablet 500 mg PO TID Rx Instructions: ORDERED 03/09/25 FOR 7 DAYS buprenorphine-naloxone 2-0.5 mg tablet, sublingual 0 tab SUBLINGUAL DIRECTED fluoxetine 40 mg capsule 40 mg PO QAM Rx Instructions: TOTAL DOSE 60 MG--TAKES WITH 20 MG CAP. bupropion HCl 150 mg tablet sustained-release 12 hr 150 mg PO BID ibuprofen 800 mg tablet 800 mg PO TID PRN (Reason: Pain) hydroxyzine pamoate 50 mg capsule 50 mg PO TID PRN (Reason: ANXIETY/SLEEP) nicotine (polacrilex) 4 mg gum 4 mg PO DIRECTED PRN (Reason: SMOKING URGES) pantoprazole 40 mg tablet,delayed release (DR/EC) 40 mg PO QAM hydrochlorothiazide 25 mg tablet 25 mg PO QAM fluoxetine 20 mg capsule 20 mg PO QAM Rx Instructions: TOTAL DOSE 60 MG--TAKES WITH 40 MG CAP. Discharge Orders: Discharge Order (Routine); Ordered 03/12/25 Ordered By: Aditya Martinez Admission Data Admit Date/Time: 03/10/25 23:49 Attending Provider: Aditya Martinez Admit Provider: Tom Meehan Primary Care Provider: PCP,NO Other Providers: Tom Meehan Hospital Stay Data Consultations 03/10/25 23:24 ED Decision to Admit Stat Pending Results Patient Have Any Pending Studies at Discharge: No Discharge Instructions Given to Patient (Per Discharging Provider) Follow up with PMD in 2 weeks Total Time Total Time Spent Total Time Spent (In Minutes): 50 Coding Level of Care Code 53557 INP/OBS DISCH >30 MIN Diagnoses Overdose T50.901A GERD (gastroesophageal reflux disease) K21.9 Alcohol abuse F10.10 Opiate abuse, continuous F11.10
== END 2025-03-12 13:05 | disposition alcohol treatment (31) | DRG 918 ==
LOC: SUATTDRO → ED 19:29 → SUATTDRO 23:49 → EDINP 23:49 → 2S 03-11 02:35